=== PATIENT | male | born 1960 | race Caucasian/White ===

== ENCOUNTER 2021-03-06 20:28 | Observation (INO) | payer BC, OTHER ==
[2021-03-06 21:20] LABS: Basophils % (A) 1 %; Eosinophils % (A) 1 %; HCT 50.7 % (39.0-53.0); HGB 17.5 gm/dL (13.0-17.5); Lymphocytes # (A) 1.5 k/uL (1.0-4.8); Lymphocytes % (A) 21 %; MCH 32.1 pg (25.0-35.0); MCHC 34.6 g/dL (31.0-37.0); MCV 92.9 fL (80.0-100.0); Monocytes # (A) 0.4 k/uL (0-1.0); Monocytes % (A) 5 %; Neutrophils # (A) 5.3 k/uL (1.3-7.7); Neutrophils % (A) 72 %; Platelet Count 283 k/uL (150-450); RBC 5.46 m/uL (4.30-5.90); RDW 13.1 % (11.5-15.5); WBC 7.4 k/uL (3.8-10.6)
[2021-03-06 21:39] LABS: ALT 21 U/L (4-49); AST 36 U/L (17-59); African American GFR (CKD) >90 (>60 ml/min/1.73 sqM); Albumin 5.2 g/dL (3.5-5.0); Alkaline Phosphatase 112 U/L (38-126); Anion Gap 27 mmol/L; Blood Urea Nitrogen 12 mg/dL (9-20); Calcium 10.1 mg/dL (8.4-10.2); Carbon Dioxide 15 mmol/L (22-30); Chloride 98 mmol/L (98-107); Glucose 94 mg/dL (74-99); Magnesium 2.3 mg/dL (1.6-2.3); Non-African American GFR(CKD) 79 (>60 ml/min/1.73 sqM); Potassium 4.8 mmol/L (3.5-5.1); Sodium 140 mmol/L (137-145); Total Bilirubin 0.8 mg/dL (0.2-1.3)
[2021-03-06 21:46] LABS: Alcohol 201 mg/dL
--- NOTE | 2021-03-06 21:49 | XR ---
EXAMINATION TYPE: XR chest 2V DATE OF EXAM: 03/06/2021 COMPARISON: 04/17/2015 HISTORY: Chest pain TECHNIQUE: 2 views FINDINGS: Heart and mediastinum are normal. Lungs are clear. Diaphragm is normal. Bony thorax is inta ct. There are chest leads. IMPRESSION: Normal chest. No change.
--- NOTE | 2021-03-06 21:55 | ED ---
Psych HPI - General Chief Complaint: Psychiatric Symptoms Stated Complaint: Chest Pain,ETOH,Suicidal Time Seen by Provider: 03/06/21 20:57 Source: patient Mode of arrival: ambulatory - History of Present Illness Initial Comments: This patient is a 60-year-old man with history of depression who states that his mood has worsened and he is having suicidal ideation. He states that it seems like his medicines stopped helping probably around 6 months ago and he has been feeling worse. He states that he was trying alcohol to see if that will help but is been continued to worsen. On the review of systems, patient was having some left-sided chest pain which is been going on for about a week. It has been constant, aching, without relieving or worsening factors. No associated anginal symptoms. MD Complaint: suicidal ideation, feels depressed Onset/Timin -: month(s) Associated Psychiatric Symptoms: depression, suicidal ideation History of same: Yes Quality: getting worse Improves With: none Worsens With: none - Related Data Home Medications Medication Instructions Recorded Confirmed Brexpiprazole [Rexulti] 1 mg PO DAILY 03/06/21 03/06/21 Gabapentin [Neurontin] 100 mg PO QID 03/06/21 03/06/21 Sacubitril/Valsartan [Entresto 97 1 tab PO BID 03/06/21 03/06/21 mg-103 mg Tablet] Sertraline HCl [Zoloft] 100 mg PO DIRECTED 03/06/21 03/06/21 Sildenafil Citrate 60 - 100 mg PO DAILY PRN 03/06/21 03/06/21 Vortioxetine Hydrobromide 5 mg PO DIRECTED 03/06/21 03/06/21 [Trintellix] buPROPion HCL [Wellbutrin SR] 100 mg PO DIRECTED 03/06/21 03/06/21 busPIRone HCl [Buspar] 5 mg PO QID 03/06/21 03/06/21 Allergies Allergy/AdvReac Type Severity Reaction Status Date / Time No Known Allergies Allergy Verified 03/06/21 22:13 Review of Systems ROS Statement: Those systems with pertinent positive or pertinent negative responses have been documented in the HPI. ROS Other: All systems not noted in ROS Statement are negative. Constitutional: Denies: fever, chills, weakness ENT: Denies: throat pain Respiratory: Denies: cough, dyspnea Cardiovascular: Reports: as per HPI, chest pain. Denies: palpitations, dyspnea on exertion, orthopnea, edema, syncope Gastrointestinal: Denies: abdominal pain, vomiting, diarrhea Genitourinary: Denies: dysuria, hematuria Musculoskeletal: Denies: back pain Skin: Denies: rash Neurological: Denies: headache, weakness, numbness Psychiatric: Reports: depression, suicidal thoughts. Denies: auditory hallucinations, visual hallucinations, homicidal thoughts Past Medical History Past Medical History: Hypertension Additional Past Medical History / Comment(s): OCD History of Any Multi-Drug Resistant Organisms: None Reported Past Surgical History: Tonsillectomy Past Anesthesia/Blood Transfusion Reactions: No Reported Reaction Past Psychological History: Anxiety, Depression Smoking Status: Former smoker Past Alcohol Use History: Daily Past Drug Use History: None Reported - Past Family History Father Additional Family Medical History / Comment(s): Father at age 56 from suicide. He also had history of MS. Mother Additional Family Medical History / Comment(s): Mother is alive in her 80s with history of OCD and possibly other mental health issues according to the patient. Sister(s) Additional Family Medical History / Comment(s): Patient has one sister with no major medical problems. Patient does not have any brothers. Patient has one 13-year-old daughter with history of leukemia General Exam Limitations: no limitations General appearance: alert, in no apparent distress Head exam: Present: atraumatic, normocephalic Eye exam: Present: normal appearance. Absent: scleral icterus, conjunctival injection ENT exam: Present: normal oropharynx Neck exam: Present: normal inspection Respiratory exam: Present: normal lung sounds bilaterally. Absent: respiratory distress, wheezes, rales, rhonchi, stridor, chest wall tenderness Cardiovascular Exam: Present: normal rhythm, tachycardia (Rate 104 exam), normal heart sounds. Absent: systolic murmur, diastolic murmur, rubs, gallop GI/Abdominal exam: Present: soft. Absent: distended, tenderness, guarding, rebound, rigid, mass Extremities exam: Present: normal inspection, normal capillary refill. Absent: pedal edema, calf tenderness Back exam: Present: normal inspection. Absent: CVA tenderness (R), CVA te nderness (L) Neurological exam: Present: alert Psychiatric exam: Present: depressed, suicidal ideation. Absent: agitated, anxious, flat affect, manic, homicidal ideation Skin exam: Present: warm, dry, intact, normal color. Absent: rash Course Vital Signs 03/06/21 03/06/21 03/07/21 20:35 22:31 00:00 Temperature 96.9 F L 96.8 F L 98.5 F Pulse Rate 114 H 95 105 H Respiratory 20 18 18 Rate Blood Pressure 175/104 134/87 127/85 O2 Sat by Pulse 97 95 93 L Oximetry 03/07/21 03/07/21 05:03 06:20 Temperature Pulse Rate 110 H 96 Respiratory 18 16 Rate Blood Pressure 122/78 118/68 O2 Sat by Pulse 96 98 Oximetry Medical Decision Making - Medical Decision Making This patient is 60-year-old man presenting with complaint of worsening depression and suicidal ideation. He also describes intermittent chest pains going back days to a couple of weeks. Given the patient's history, will complete the initial cardiac rule out, by admitting under the medical service with psychiatry consultation for the suicidal ideation and depression. - Lab Data Result diagrams: 03/06/21 21:14 03/06/21 21:14 Lab Results 03/06/21 03/06/21 03/06/21 Range/Units 21:14 21:14 21:14 WBC 7.4 (3.8-10.6) k/uL RBC 5.46 (4.30-5.90) m/uL Hgb 17.5 (13.0-17.5) gm/dL Hct 50.7 (39.0-53.0) % MCV 92.9 (80.0-100.0) fL MCH 32.1 (25.0-35.0) pg MCHC 34.6 (31.0-37.0) g/dL RDW 13.1 (11.5-15.5) % Plt Count 283 (150-450) k/uL MPV 8.0 Neutrophils % 72 % Lymphocytes % 21 % Monocytes % 5 % Eosinophils % 1 % Basophils % 1 % Neutrophils # 5.3 (1.3-7.7) k/uL Lymphocytes # 1.5 (1.0-4.8) k/uL Monocytes # 0.4 (0-1.0) k/uL Eosinophils # 0.0 (0-0.7) k/uL Basophils # 0.0 (0-0.2) k/uL Sodium 140 (137-145) mmol/L Potassium 4.8 (3.5-5.1) mmol/L Chloride 98 (98-107) mmol/L Carbon Dioxide 15 L (22-30) mmol/L Anion Gap 27 mmol/L BUN 12 (9-20) mg/dL Creatinine 1.02 (0.66-1.25) mg/dL Est GFR (CKD-EPI)AfAm >90 (>60 ml/min/1.73 sqM) Est GFR (CKD-EPI)NonAf 79 (>60 ml/min/1.73 sqM) Glucose 94 (74-99) mg/dL Calcium 10.1 (8.4-10.2) mg/dL Magnesium 2.3 (1.6-2.3) mg/dL Total Bilirubin 0.8 (0.2-1.3) mg/dL AST 36 (17-59) U/L ALT 21 (4-49) U/L Alkaline Phosphatase 112 (38-126) U/L Troponin I <0.012 (0.000-0.034) ng/mL Total Protein 8.0 (6.3-8.2) g/dL Albumin 5.2 H (3.5-5.0) g/dL Serum Alcohol 201 H* mg/dL 03/07/21 Range/Units 01:21 WBC (3.8-10.6) k/uL RBC (4.30-5.90) m/uL Hgb (13.0-17.5) gm/dL Hct (39.0-53.0) % MCV (80.0-100.0) fL MCH (25.0-35.0) pg MCHC (31.0-37.0) g/dL RDW (11.5-15.5) % Plt Count (150-450) k/uL MPV Neutrophils % % Lymphocytes % % Monocytes % % Eosinophils % % Basophils % % Neutrophils # (1.3-7.7) k/uL Lymphocytes # (1.0-4.8) k/uL Monocytes # (0-1.0) k/uL Eosinophils # (0-0.7) k/uL Basophils # (0-0.2) k/uL Sodium (137-145) mmol/L Potassium (3.5-5.1) mmol/L Chloride (98-107) mmol/L Carbon Dioxide (22-30) mmol/L Anion Gap mmol/L BUN (9-20) mg/dL Creatinine (0.66-1.25) mg/dL Est GFR (CKD-EPI)AfAm (>60 ml/min/1.73 sqM) Est GFR (CKD-EPI)NonAf (>60 ml/min/1.73 sqM) Glucose (74-99) mg/dL Calcium (8.4-10.2) mg/dL Magnesium (1.6-2.3) mg/dL Total Bilirubin (0.2-1.3) mg/dL AST (17-59) U/L ALT (4-49) U/L Alkaline Phosphatase (38-126) U/L Troponin I <0.012 (0.000-0.034) ng/mL Total Protein (6.3-8.2) g/dL Albumin (3.5-5.0) g/dL Serum Alcohol mg/dL - EKG Data -: EKG Interpreted by Hi EKG shows normal: sinus rhythm, intervals (Normal), QRS complexes (Left anterior fascicular block.), ST-T waves (Normal) Rate: tachycardia (03/15/2003) Disposition Clinical Impression: Suicidal ideation, Mood disorder, Alcohol intoxication Disposition: ADMITTED IP TO THIS HOSP Condition: Fair
[2021-03-06] MEDS ORDERED: LORazepam 2 MG/ML INJ IV PRN (22:38)
[2021-03-06] MEDS ORDERED: THIAMINE 100 MG/ML 2 ML VIAL IM STA (22:38)
[2021-03-06] MEDS: LORazepam 2 MG/ML INJ IV PRN (23:03)
[2021-03-07] MEDS: LORazepam 2 MG/ML INJ IV PRN ×5 (01:46→22:19)
[2021-03-07] MEDS ORDERED: NITROGLYCERIN SL TABS 0.4 MG TAB SUBLINGUAL PRN (05:52)
[2021-03-07] MEDS ORDERED: SERTRALINE 100 MG TAB PO SCH (06:00)
--- NOTE | 2021-03-07 08:59 | CONS ---
CONSULTATION Mr. Valadez is a 60-year-old male who presented to the emergency room after consuming a large amount of alcohol and symptoms of chest discomfort. He has a history of alcoholism on and off and he has been feeling more depressed recently and had drank quite a bit of alcohol. He was having some suicidal idea. He came in with some episodes of chest discomfort that was brief. The patient has a history of cardiomyopathy in the past, full detail and the etiology is unclear. He has not seen a database engineer recently. He has some dyspnea on exertion. No dizziness. No palpitation. No syncope. No PND nor orthopnea. He has a prior history of smoking, but not recently. He denies any recent cardiac workup. He has a history of hypertension, he is nondiabetic. MEDICATIONS: Medications include gabapentin, Wellbutrin, Trintellix, Zoloft, Rexulti, Entresto 97/103 twice a day, and BuSpar. REVIEW OF SYSTEMS: RESPIRATORY SYSTEM: He has occasional cough. No significant dyspnea on exertion. No wheezing. GI SYSTEM: No recent GI bleeding. No peptic ulcer disease. SYSTEM: No dysuria or hematuria. NERVOUS SYSTEM: No history of stroke or seizure. PHYSICAL EXAMINATION: GENERAL: A 60-year-old male, alert, oriented, in no apparent distress. VITAL SIGNS: Blood pressure 118/60 with a heart rate in 90s, afebrile. HEAD: Normocephalic. Eyes sclerae anicteric. NECK: Good carotid upstroke, no bruit, no jugular venous distention. LUNGS: Clear to auscultation. HEART: Regular rate and rhythm S1, S2. No S3. No S4. No murmur or rub. ABDOMEN: Soft, nontender, positive bowel sounds. No organomegaly. EXTREMITIES: No edema. LAB DATA: Lab data revealed troponin less than 0.012 for 3 samples. Serum alcohol of 201. Potassium 4.8. Sodium 140. Hemoglobin of 17.5. EKG revealed a sinus mechanism, rate of 103, left axis deviation, poor R wave progression. Chest x-ray shows no acute infiltrate. IMPRESSION: 1. Chest discomfort atypical for ischemic heart disease. No evidence to suggest acute coronary syndrome. 2. Alcoholism with acute intoxication. 3. History of cardiomyopathy of unclear etiology. Workup not available to me. RECOMMENDATION: Patient has been restarted on Entresto. I will add a dose of beta yogi. I will obtain a repeat echocardiogram. From the cardiac standpoint at this time there is no indication for further cardiac workup. Depending on his progress, further recommendations will be made. Thank you for this consult. We will follow with you. JOEY / IJN: [id number] /
[2021-03-07] MEDS: THIAMINE 100 MG TAB PO SCH ×2 (09:57→17:16)
[2021-03-07] MEDS: GABAPENTIN 100 MG CAP PO SCH ×4 (09:57→22:17)
[2021-03-07] MEDS: METOPROLOL SUCCINATE (ER) 25 MG TAB.ER.24H PO SCH (09:57)
[2021-03-07] MEDS: Brexpiprazole [Rexulti] PO SCH (09:57)
[2021-03-07] MEDS: busPIRone HCl 5 MG TAB PO SCH ×4 (09:57→22:17)
[2021-03-07] MEDS: SACUBITRIL/VALSARTAN 97 MG-103 MG TABLET PO SCH ×2 (09:58→22:27)
--- NOTE | 2021-03-07 11:26 | P.HPIM ---
History of Present Illness Patient is 60-year-old male ai given with suicidal ideations patient the same as he is quite a bit depressed and he is up to that point when asked him about this. Patient is awake alert patient was intoxicated when he came in. Patient the did drink one whole bottle of wine patient was drinking around the 2-4 bottles for last 2 weeks before that patient didn't drink alcohol on a daily basis patient laboratory data is not consistent with the chronic alcoholism although patient had history of all call withdrawal seizures in the past. Is comparing of epigastric abdominal discomfort because of which is believed to have chest pain and the cardiology was consulted because of that and cardiology evaluated the patient they believe patient chest pain is noncardiac. Patient does have history of cardiomyopathy etiology of this can you mapped is not clear. Patient is on Entresto, patient is presently not in acute exacerbation. Patient doesn't use any diuretics at home. His ejection fraction is not known as there is no echocardiogram available patient has anion gap metabolic acidosis secondary to alcohol but will rule out lactic acidosis will order lactic acid on him. REVIEW OF SYSTEMS: CONSTITUTIONAL: No fever, no malaise, no fatigue. HEENT: No recent visual problems or hearing problems. Denied any sore throat. CARDIOVASCULAR: No orthopnea, PND, no palpitations, no syncope. PULMONARY: No shortness of breath, no cough, no hemoptysis. GASTROINTESTINAL: No diarrhea, no nausea, no vomiting. NEUROLOGICAL: No headaches, no weakness, no numbness. HEMATOLOGICAL: Denies any bleeding or petechiae. GENITOURINARY: Denies any burning micturition, frequency, or urgency. MUSCULOSKELETAL/RHEUMATOLOGICAL: Denies any joint pain, swelling, or any muscle pain. ENDOCRINE: Denies any polyuria or polydipsia. The rest of the 14-point review of systems is negative. PHYSICAL EXAMINATION: GENERAL: The patient is alert and oriented x3, not in any acute distress. Well developed, well nourished. HEENT: Pupils are round and equally reacting to light. EOMI. No scleral icterus. No conjunctival pallor. Normocephalic, atraumatic. No pharyngeal erythema. No thyromegaly. CARDIOVASCULAR: S1 and S2 present. No murmurs, rubs, or gallops. PULMONARY: Chest is clear to auscultation, no wheezing or crackles. ABDOMEN: Soft, nontender, nondistended, normoactive bowel sounds. No palpable organomegaly. MUSCULOSKELETAL: No joint swelling or deformity. EXTREMITIES: No cyanosis, clubbing, or pedal edema. NEUROLOGICAL: Gross neurological examination did not reveal any focal deficits. SKIN: No rashes. Assessment and plan Depression and possible suicidal ideations: Psychiatry was consulted patient presently doesn't have a sitter. -Major depression -Epigastric abdominal discomfort most probably alcohol gastritis patient will be started on Protonix -Alcohol abuse -Alcohol withdrawal: Patient has very low possibility of having alcohol withdrawals considering his labs and alcohol use history. Patient doesn't have any withdrawals patient will be cleared to go to psychiatric floor most probably tomorrow. -Anion gap metabolic acidosis: Continue to alcoholism we will rule out lactic acidosis DVT prophylaxis: Proximal Past Medical History Past Medical History: Hypertension Additional Past Medical History / Comment(s): OCD History of Any Multi-Drug Resistant Organisms: None Reported Past Surgical History: Tonsillectomy Past Anesthesia/Blood Transfusion Reactions: No Reported Reaction Past Psychological History: Anxiety, Depression Smoking Status: Former smoker Past Alcohol Use History: Daily Past Drug Use History: None Reported - Past Family History Father Additional Family Medical History / Comment(s): Father at age 56 from suicide. He also had history of MS. Mother Additional Family Medical History / Comment(s): Mother is alive in her 80s with history of OCD and possibly other mental health issues according to the patient. Sister(s) Additional Family Medical History / Comment(s): Patient has one sister with no major medical problems. Patient does not have any brothers. Patient has one 13-year-old daughter with history of leukemia Medications and Allergies Home Medications Medication Instructions Recorded Confirmed Type Brexpiprazole [Rexulti] 1 mg PO DAILY 03/06/21 03/06/21 History Gabapentin [Neurontin] 100 mg PO QID 03/06/21 03/06/21 History Sacubitril/Valsartan [Entresto 97 1 tab PO BID 03/06/21 03/06/21 History mg-103 mg Tablet] Sertraline HCl [Zoloft] 100 mg PO DIRECTED 03/06/21 03/06/21 History Sildenafil Citrate 60 - 100 mg PO DAILY PRN 03/06/21 03/06/21 History Vortioxetine Hydrobromide 5 mg PO DIRECTED 03/06/21 03/06/21 History [Trintellix] buPROPion HCL [Wellbutrin SR] 100 mg PO DIRECTED 03/06/21 03/06/21 History busPIRone HCl [Buspar] 5 mg PO QID 03/06/21 03/06/21 History Allergies Allergy/AdvReac Type Severity Reaction Status Date / Time No Known Allergies Allergy Verified 03/06/21 22:13 Physical Exam Vitals: Vital Signs Temp Pulse Resp BP Pulse Ox 03/07/21 10:20 94 16 154/80 96 03/07/21 06:20 96 16 118/68 98 03/07/21 05:03 110 H 18 122/78 96 03/07/21 00:00 98.5 F 105 H 18 127/85 93 L 03/06/21 22:31 96.8 F L 95 18 134/87 95 03/06/21 20:35 96.9 F L 114 H 20 175/104 97 Intake and Output 03/06/21 03/07/21 03/07/21 22:59 06:59 14:59 Other: Weight 95.254 kg Results CBC & Chem 7: 03/06/21 21:14 03/06/21 21:14 Labs: Abnormal Lab Results - Last 24 Hours (Table) 03/06/21 Range/Units 21:14 Carbon Dioxide 15 L (22-30) mmol/L Albumin 5.2 H (3.5-5.0) g/dL Serum Alcohol 201 H* mg/dL
[2021-03-07] MEDS: PANTOPRAZOLE 40 MG/10 ML VIAL IVP SCH (13:58)
[2021-03-07] MEDS: buPROPion SR 100 MG TABLET.ER PO SCH ×2 (14:46→22:18)
--- NOTE | 2021-03-07 15:00 | ECHOF ---
Referral Reason:cm MEASUREMENTS -------- HEIGHT: 177.8 cm WEIGHT: 95.3 kg BP: IVSd: 1.8 cm (0.6 - 1.1) LVIDd: 4.1 cm (3.9 - 5.3) LVPWd: 1.6 cm (0.6 - 1.1) IVSs: 1.9 cm LVIDs: 3.1 cm LVPWs: 1.6 cm Ao Diam: 4.0 cm (2.0 - 3.7) AV Cusp: 2.5 cm (1.5 - 2.6) LA Diam: 2.9 cm (2.7 - 3.8) MV EXCURSION: 15.618 mm (> 18.000) MV EF SLOPE: 91 mm/s (70 - 150) EPSS: 1.7 cm MV E Cr: 1.02 m/s MV DecT: 92 ms MV A Cr: 0.39 m/s MV E/A Ratio: 2.61 RAP: 5.00 mmHg RVSP: 9.49 mmHg FINDINGS -------- Sinus rhythm. This was a technically difficult study with suboptimal views. Left ventricular wall thickness is normal. Overall left ventricular systolic function is moderately impaired with, an EF between 35 - 40 %. Basal inferior LV wall motion is hypokinetic. Basal inf eroseptal LV wall motion is hypokinetic. Mid inferior LV wall motion is hypokinetic. Mid infero septal LV wall motion is hypokinetic. Apical inferior LV wall motion is hypokinetic. The right ventricle is normal in size. The left atrial size is normal. The right atrial size is normal. Lumason used The aortic valve was not well visualized. The mitral valve is normal. There is trace mitral regurgitation. The tricuspid valve appears structurally normal. Trace tricuspid regurgitation present. Right jeimy tricular systolic pressure is normal at < 35 mmHg. The pulmonic valve was not well visualized. The aortic root is dilated measuring 4.0 cm. IVC Not well visulized. There is no pericardial effusion. CONCLUSIONS -------- 1. This was a technically difficult study with suboptimal views. 2. Left ventricular wall thickness is normal. 3. Overall left ventricular systolic function is moderately impaired with, an EF between 35 - 40 %. 4. Basal inferior LV wall motion is hypokinetic. 5. Basal inferoseptal LV wall motion is hypokinetic. 6. Mid inferior LV wall motion is hypokinetic. 7. Mid inferoseptal LV wall motion is hypokinetic. 8. Apical inferior LV wall motion is hypokinetic. 9. The left atrial size is normal. 10. There is trace mitral regurgitation. 11. Trace tricuspid regurgitation present. 12. The aortic root is dilated measuring 4.0 cm. 13. There is no pericardial effusion. JUKE BOX MECHANIC: Lynne Hyman RDCS
[2021-03-08 06:08] LABS: African American GFR (CKD) 88 (>60 ml/min/1.73 sqM); Anion Gap 10 mmol/L; Blood Urea Nitrogen 21 mg/dL (9-20); Calcium 9.8 mg/dL (8.4-10.2); Carbon Dioxide 31 mmol/L (22-30); Chloride 96 mmol/L (98-107); Glucose 128 mg/dL (74-99); Non-African American GFR(CKD) 76 (>60 ml/min/1.73 sqM); Potassium 4.1 mmol/L (3.5-5.1); Sodium 137 mmol/L (137-145)
[2021-03-08] MEDS: ASPIRIN 81 MG PO SCH (07:11)
[2021-03-08] MEDS: GABAPENTIN 100 MG CAP PO SCH ×4 (07:11→21:56)
[2021-03-08] MEDS: busPIRone HCl 5 MG TAB PO SCH ×4 (07:11→21:56)
[2021-03-08] MEDS: ENOXAPARIN 40 MG/0.4 ML SYRINGE SQ SCH (07:11)
[2021-03-08] MEDS: buPROPion SR 100 MG TABLET.ER PO SCH ×2 (07:11→21:56)
[2021-03-08] MEDS: METOPROLOL SUCCINATE (ER) 25 MG TAB.ER.24H PO SCH (07:12)
[2021-03-08] MEDS: SACUBITRIL/VALSARTAN 97 MG-103 MG TABLET PO SCH (07:12)
[2021-03-08] MEDS: Brexpiprazole [Rexulti] PO SCH (07:12)
[2021-03-08] MEDS: THIAMINE 100 MG TAB PO SCH ×2 (08:17→17:41)
[2021-03-08] MEDS: PANTOPRAZOLE 40 MG/10 ML VIAL IVP SCH (08:17)
[2021-03-08] MEDS ORDERED: ASPIRIN 325 MG TAB PO SCH (09:00)
[2021-03-08 10:08] LABS: Chol/HDL Ratio 3.25; LDL Cholesterol,Calculated 77.8 mg/dL (0.0-131.0); VLDL Calculation 30.2 mg/dL (5.00-40.00)
--- NOTE | 2021-03-08 11:31 | P.DS ---
Providers Date of admission: 03/07/21 05:52 Expected date of discharge: 03/08/21 Attending physician: Yossi Hahn Consults: 03/07/21 05:52 Consult Physician Routine Consulting Provider: Josefina Diana Consult Reason/Comments: chest pain Do you want consulting provider notified?: Yes 03/08/21 11:15 Consult Physician Routine Consulting Provider: Tres Ahuja Consult Reason/Comments: suicidal ideation Do you want consulting provider notified?: Already Contacted Primary care physician: Fabby Fermin [facility] Course: History of Present Illness Patient is 60-year-old male ai given with suicidal ideations patient the same as he is quite a bit depressed and he is up to that point when asked him about this. Patient is awake alert patient was intoxicated when he came in. Patient the did drink one whole bottle of wine patient was drinking around the 2-4 bottles for last 2 weeks before that patient didn't drink alcohol on a daily basis patient laboratory data is not consistent with the chronic alcoholism although patient had history of all call withdrawal seizures in the past. Is comparing of epigastric abdominal discomfort because of which is believed to have chest pain and the cardiology was consulted because of that and cardiology evaluated the patient they believe patient chest pain is noncardiac. Patient does have history of cardiomyopathy etiology of this can you mapped is not clear. Patient is on Entresto, patient is presently not in acute exacerbation. Patient doesn't use any diuretics at home. His ejection fraction is not known as there is no echocardiogram available patient has anion gap metabolic acidosis secondary to alcohol but will rule out lactic acidosis will order lactic acid on him. 03/08/2021 Patient seen on follow-up on the medical floor, having no withdrawal symptoms at this time. Patient is calm and cooperative, answering questions appropriately Vital signs are stable, no fever. He is not short of breath or having any chest pain, is on room air saturating above 90%. Family is at bedside. We'll check a chest x-ray as he does have known history of CHF. Patient is medically stable for transfer to psychiatric floor. Constitutional: Denied any fatigue denied any fever. Cardio vascular: denied any chest pain, palpitations Gastrointestinal denied any nausea vomiting Pulmonary: Denied any shortness of breath cough Neurologic denied any new focal deficits psychiatric: depressed and anxious PHYSICAL EXAMINATION: GENERAL: The patient is alert and oriented x3, not in any acute distress. Well developed, well nourished. HEENT: Pupils are round and equally reacting to light. EOMI. No scleral icterus. No conjunctival pallor. Normocephalic, atraumatic. No pharyngeal erythema. No thyromegaly. CARDIOVASCULAR: S1 and S2 present. No murmurs, rubs, or gallops. PULMONARY: Chest is clear to auscultation, no wheezing or crackles. ABDOMEN: Soft, nontender, nondistended, normoactive bowel sounds. No palpable organomegaly. MUSCULOSKELETAL: No joint swelling or deformity. EXTREMITIES: No cyanosis, clubbing, or pedal edema. NEUROLOGICAL: Gross neurological examination did not reveal any focal deficits. SKIN: No rashes. Assessment and plan Depression and possible suicidal ideations: Plan for discharge and readmit to psychiatric unit. Patient is medically stable for transfer to the psychiatric unit. Patient has voluntarily agreed to go to inpatient psychiatric unit for further treatment. -Major depression -Epigastric abdominal discomfort most probably alcohol gastritis patient will be started on Protonix -Alcohol abuse -History of CHF: Not in acute exacerbation, we will check a chest x-ray prior to transfer to psychiatric unit. -Alcohol withdrawal: Patient has not had any alcohol withdrawal symptoms, it is unlikely that he will have withdrawal, in the case es have minor withdrawal symptoms these can be managed on the psychiatric unit. DVT prophylaxis: Subcutaneous Lovenox Patient Condition at Discharge: Fair Plan - Discharge Summary Discharge Rx Participant: No New Discharge Prescriptions: New Omeprazole [PriLOSEC] 40 mg PO AC-BRKFST #14 capsule. Thiamine [Vitamin B-1] 100 mg PO BID-W/MEALS tab Continue Vortioxetine Hydrobromide [Trintellix] 5 mg PO DIRECTED Sertraline HCl [Zoloft] 100 mg PO DIRECTED Sacubitril/Valsartan [Entresto 97 mg-103 mg Tablet] 1 tab PO BID busPIRone HCl [Buspar] 5 mg PO QID Sildenafil Citrate 60 - 100 mg PO DAILY PRN PRN Reason: E.D. Gabapentin [Neurontin] 100 mg PO QID buPROPion HCL [Wellbutrin SR] 100 mg PO DIRECTED Brexpiprazole [Rexulti] 1 mg PO DAILY Discharge Medication List Brexpiprazole [Rexulti] 1 mg PO DAILY 03/06/21 [History] Gabapentin [Neurontin] 100 mg PO QID 03/06/21 [History] Sacubitril/Valsartan [Entresto 97 mg-103 mg Tablet] 1 tab PO BID 03/06/21 [History] Sertraline HCl [Zoloft] 100 mg PO DIRECTED 03/06/21 [History] Sildenafil Citrate 60 - 100 mg PO DAILY PRN 03/06/21 [History] Vortioxetine Hydrobromide [Trintellix] 5 mg PO DIRECTED 03/06/21 [History] buPROPion HCL [Wellbutrin SR] 100 mg PO DIRECTED 03/06/21 [History] busPIRone HCl [Buspar] 5 mg PO QID 03/06/21 [History] Omeprazole [PriLOSEC] 40 mg PO AC-BRKFST #14 capsule. 03/08/21 [Rx] Thiamine [Vitamin B-1] 100 mg PO BID-W/MEALS tab 03/08/21 [Rx] Follow up Appointment(s)/Referral(s): Fabby Fermin DO [Primary Care Provider] - 3 Days Discharge Disposition: TRANSFER TO PSYCH HOSP/UNIT
--- NOTE | 2021-03-08 13:24 | P.PN ---
Subjective Progress Note Date: 03/08/21 This 60-year-old gentleman with history of alcoholism and history of cardiomyopathy. Presented to the hospital after consuming a large amount of alcohol and developing symptoms of chest discomfort as well as some suicidal ideation. Patient had been on Entresto tablet twice a day at home. Echocardiogram with Doppler study done yesterday showed paired LV systolic function with an ejection fraction of 35-40% with evidence of segmental wall motion abnormality which the patient has had been told in the past for these had an MT. He does not follow regularly with cardiology. He was initiated on metoprolol succinate 25 mg by mouth daily yesterday. He is tolerating this well. Overall from a cardiac standpoint he seems stable. He's had no further complaints of chest discomfort. His breathing is stable and he has no edema. Objective - Vital Signs Vital signs: Vital Signs Temp 97.6 F 03/08/21 08:00 Pulse 94 03/08/21 08:00 Resp 18 03/08/21 08:00 BP 116/78 03/08/21 08:00 Pulse Ox 94 L 03/08/21 08:00 Intake & Output 03/07/21 03/08/21 03/08/21 18:59 06:59 18:59 Weight 95.254 kg 87.2 kg Other: Voiding Method Toilet Toilet Toilet # Voids 1 2 1 - Exam PHYSICAL EXAMINATION: HEENT: Head is atraumatic, normocephalic. Pupils equal, round. Neck is supple. There is no elevated jugular venous pressure. HEART EXAMINATION: Heart sounds regular, S1 and S2 normal. No murmur or gallop heard. CHEST EXAMINATION: Lungs are clear to auscultation and precussion. No chest wall tenderness is noted on palpation or with deep breathing. ABDOMEN: Soft, nontender. Bowel sounds are heard. No organomegaly noted. EXTREMITIES: 2+ peripheral pulses with no evidence of peripheral edema and no calf tenderness noted. NEUROLOGIC patient is awake, alert and oriented x3. . - Labs CBC & Chem 7: 03/06/21 21:14 03/08/21 05:43 Labs: Abnormal Lab Results - Last 24 Hours (Table) 03/08/21 03/08/21 Range/Units 05:43 05:43 Chloride 96 L (98-107) mmol/L Carbon Dioxide 31 H (22-30) mmol/L BUN 21 H (9-20) mg/dL Glucose 128 H (74-99) mg/dL Triglycerides 151.0 H (0.0-149.0) mg/dL Assessment and Plan Assessment: #1 chest discomfort, atypical for ischemic heart disease #2 cardiomyopathy with an ejection fraction of 35-40% with evidence of segmental wall motion abnormality, details of previous workup not available at this time could be related to both ischemic and nonischemic etiologies #3 alcoholism with acute intoxication Plan: From cardiology's perspective medications were viewed and we will continue the same. Her standpoint patient may be discharged and follow-up in the office in 2 weeks at which time further medication adjustments will be made as needed. CAGE LOADER note has been reviewed, I agree with a documented findings and plan of care. Patient was seen and examined.
--- NOTE | 2021-03-08 15:13 | XR ---
EXAMINATION TYPE: XR chest 1V DATE OF EXAM: 03/08/2021 HISTORY: Shortness of breath. COMPARISON: 03/06/2021 TECHNIQUE: Single view of the chest is submitted. FINDINGS: Demonstrated are scattered senescent parenchymal change. There is no evidence for focal infiltrate. The heart is stable. Hilar and mediastinal structures are within normal limits. Degenerative changes are seen of the dorsal spine. IMPRESSION: 1. Chronic changes without evidence for acute pulmonary disease.
[2021-03-08] MEDS ORDERED: clonazePAM 0.5 MG TAB PO PRN (21:07)
[2021-03-08] MEDS: SACUBITRIL/VALSARTAN 49 MG-51 MG TABLET PO SCH (22:00)
[2021-03-09 01:04] VITALS: RESP 16
[2021-03-09] MEDS ORDERED: PANTOPRAZOLE 40 MG TABLET PO SCH (07:30)
[2021-03-09 07:51] VITALS: PULSE 80; TEMP 97.9
[2021-03-09] MEDS: ASPIRIN 81 MG PO SCH (08:09)
[2021-03-09] MEDS: METOPROLOL SUCCINATE (ER) 25 MG TAB.ER.24H PO SCH (08:09)
[2021-03-09] MEDS: THIAMINE 100 MG TAB PO SCH ×2 (08:09→16:59)
[2021-03-09] MEDS: buPROPion SR 100 MG TABLET.ER PO SCH (08:09)
[2021-03-09] MEDS: busPIRone HCl 5 MG TAB PO SCH (08:09)
[2021-03-09] MEDS: ENOXAPARIN 40 MG/0.4 ML SYRINGE SQ SCH (08:09)
[2021-03-09] MEDS: GABAPENTIN 100 MG CAP PO SCH ×3 (08:09→16:59)
[2021-03-09] MEDS: SACUBITRIL/VALSARTAN 49 MG-51 MG TABLET PO SCH (08:10)
[2021-03-09] MEDS: Brexpiprazole [Rexulti] PO SCH (08:29)
[2021-03-09 08:47] VITALS: BP 124/78
[2021-03-09] MEDS ORDERED: chlordiazePOXIDE 25 MG CAP PO SCH (12:15)
[2021-03-09] MEDS ORDERED: SERTRALINE 50 MG TAB PO SCH (12:15)
--- NOTE | 2021-03-09 12:17 | P.CN ---
Psychiatric Consult - . Consult date: 03/09/21 Consult:: 03/09/21 11:50 IDENTIFYING DATA: This patient is a 60-year-old male who currently lives with his girlfriend and apartment has 1 kid and is unemployed. REASON FOR REFERRAL: Psychiatry was consulted for suicidal ideations HISTORY OF PRESENT ILLNESS: The patient presented to the hospital for complaints of depression and suicidal thoughts along with having chest pain for the past week or so. Patient claims that his meds stopped helping him approximately 6 months ago and he has been using alcohol as a coping mechanism and has been feeling more depressed. He had a blood alcohol level of 201 on admission and negative troponins and was admitted for cardiac clearance. Patient was cleared by cardiology. Nurse taking care of patient states that he is continuing to have suicidal ideations however no direct plan in the hospital and has a sitter at his side. She states that his CIWA was have been doing fairly well thus far. Patient was seen at the bedside and had a soft tone of voice was fairly constricted in his affect and had poor eye contact with commercial lines underwriter. He claims that he has been not doing well in terms of his depression and anxiety for the past 6 months. He spoke about going through divorce 5 years ago. He claims that at that time he had a suicide attempt where he held a gun to himself and was escaping from the police trying to find him. He states that he was admitted to 3 at that time and was essentially homeless after. He states that he went to [facility] and began doing better on medications. He states that he has a history of severe OCD being related to germs and handwashing along with order of things. He states that he has been out of work since June and claims that his primary care physician has been managing his psychiatric medications and claims that they have not been helping him. He states that he still has suicidal thoughts however had vague plans of wanting to either buy a gun or hanging himself. He claims that he is not hearing any voices at this time. He states that his sleep is "on and off" and his appetite is poor . Patient denies any visual hallucinations and denies any paranoia or delusions. Patients admits to using alcohol daily approximately 4 bottles of wine a day. He states that he does have some anxiety related to his alcohol withdrawal however does not have any tremors and no history of severe alcohol withdrawals. He claims that he quit smoking and does not do any other drug use. PAST PSYCHIATRIC HISTORY: Patient has a a history of depression, anxiety and OCD. Patient was previously on several different antidepressants in the past and benzodiazepines along with BuSpar and Wellbutrin. Patient claims that he was last psychiatrically hospitalized about 5 years ago after a suicide attempt to [address] [facility]. He states that he does not have a outpatient psychiatrist however does follow up with his PCP for his medications. He claims that he did have a suicide attempt 5 years ago holding a gun to himself. PAST MEDICAL HISTORY: Hypertension, coronary artery disease, hernia.. ALLERGIES: as per EMR. CHEMICAL DEPENDENCY HISTORY: as per HPI. FAMILY PSYCHIATRIC/SUBSTANCE USE HISTORY: He states that his father committed suicide and mother has OCD SOCIAL HISTORY: Patient was born and raised in [place]. He states that he completed his degree in psychology and work towards a master's. 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 He has 1 kid who lives with his mother and visits his girlfriend and apartment. He states that he has 1 charge against him legally for domestic violence in 1996. MENTAL STATUS EXAM: General Appearance: Patient appears to be stated age is overweight, alert, constricted however attempts to cooperate. Patient appears to have poor hygiene and grooming wearing hospital gown with poor eye contact. Behavior: Patient is calmly lying in bed without any agitated behavior. Constricted and flat Speech: Patient's speech is fluent and nonpressured. Mood/Affect: Patient reports their mood is "depressed and anxious", affect is congruent Suicidality/Homicidality: Patient denies having any homicidal ideation intent or plan. He admits to suicidal thoughts with a plan to hang himself or use a gun. Perceptions: Patient denies any visual hallucinations and denies any auditory hallucinations Though content/process: There is no evidence of any delusional thought content and thought process is linear and goal-directed. Depressive content Memory and concentration: AOX3, grossly intact for the purposes of this session. Can spell "WORLD" backwards Judgment and insight: poor IMPRESSIONS: Major depressive disorder, severe, recurrent without psychotic features History of obsessive-compulsive disorder alcohol use disorder, currently in withdrawal PLAN: -At this time patient DOES meet criteria for inpatient psychiatric admission. -Would recommend the following medication changes/additions: Discontinued rexulti, vortioxetine, and klonopin, wellbutrin. Increased BuSpar to 10 mg 3 times a day for anxiety, started on Zoloft 50 mg daily for mood/anxiety with plan to titrate up. Remeron 15 mg daily at bedtime. We'll start Librium 25 mg twice a day for alcohol withdrawal -CIWA protocol with PRN Ativan for alcohol withdrawal. Continue to monitor vital signs. -Continue 1:1 sitter for safety -Cannot leave AMA at this time. Patient will need a petition and certification if attempting to leave AMA. -Bindery Machine Setter spoke with patient about substance abuse and the harmful effects on medical and mental health, patient verbally understood and agreed. -When medically stable, patient is eligible for transfer to a psych bed when available. -Communicated plan to patient's nurse -Psychiatry will sign off at this time -Please contact with any questions. 03/09/21 12:08
[2021-03-09] MEDS ORDERED: chlordiazePOXIDE 5 MG CAPSULE PO SCH (12:30)
[2021-03-09] MEDS: busPIRone HCl 10 MG TAB PO SCH ×2 (12:53→16:59)
--- NOTE | 2021-03-09 17:14 | P.DS ---
Providers Date of admission: 03/07/21 05:52 Expected date of discharge: 03/09/21 Attending physician: Jeremías Arreaga MD Consults: 03/08/21 11:15 Consult Physician Routine Consulting Provider: Tres Ahuja Consult Reason/Comments: suicidal ideation Do you want consulting provider notified?: Already Contacted Primary care physician: Fabby Fermin [facility] Course: Final diagnoses -Major Depression with suicidal ideations, discharge to inpatient mental health unit. -Acute alcohol intoxication with withdrawal -Alcohol gastritis, maintained on PPI -Alcohol dependence, alcohol abuse, reportedly drinks 4 bottles of wine daily. -Cardiomyopathy, EF 35-40%, per cardiology, etiology unclear- could be both ischemic and nonischemic as per cardiology -Obsessive-compulsive disorder Hospital course: This a 60-year-old gentleman admitted with chest pain- atypical for ischemic heart disease as per cardiology, cardiomyopathy, alcohol intoxication, alcohol dependence. Evaluated by cardiology, medical management maximized. Cleared by cardiology for discharge. Denies chest pain, palpitations or shortness of breath. Orthostatic vital signs negative. Significant clinical improvement, medically cleared for inpatient mental health unit. Patient will be discharged to inpatient mental health unit pending bed availability. PHYSICAL EXAMINATION: GENERAL: alert and oriented x3, no acute distress HEENT: Pupils are round and equally reacting to light. EOMI. Normocephalic, atraumatic. CARDIOVASCULAR: S1 and S2 present. No murmurs, rubs, or gallops. PULMONARY: Clear to auscultation, no wheezing or crackles. ABDOMEN: Soft, nontender, nondistended, normoactive bowel sounds. No guarding. EXTREMITIES: No cyanosis, clubbing, or pedal edema. NEUROLOGICAL: Gross neurological examination did not reveal any focal deficits. The impression and plan of care has been dictated as directed. : I performed a history and examination of this patient, discussed the same with the dictator. I agree with the dictator's note ,documented as a scribe. Any additional findings or plans will be noted. Patient Condition at Discharge: Stable Plan - Discharge Summary Discharge Rx Participant: No New Discharge Prescriptions: New Omeprazole [PriLOSEC] 40 mg PO AC-BRKFST #14 capsule. Aspirin 81 mg PO DAILY chew busPIRone HCl [Buspar] 10 mg PO TID tab Mirtazapine [Remeron] 15 mg PO HS tab Thiamine [Vitamin B-1] 100 mg PO DAILY #30 tablet Sacubitril/Valsartan [Entresto 49 mg-51 mg Tablet] 1 each PO BID tablet chlordiazePOXIDE HCl [Librium] 25 mg PO BID cap Nitroglycerin Sl Tabs [Nitrostat] 0.4 mg SUBLINGUAL Q5M PRN tab PRN Reason: Chest Pain Metoprolol Succinate (ER) [Toprol XL] 25 mg PO DAILY tab.er.24h Sertraline [Zoloft] 50 mg PO DAILY tab Continue Gabapentin [Neurontin] 100 mg PO QID Discontinued Vortioxetine Hydrobromide [Trintellix] 5 mg PO DAILY Sertraline HCl [Zoloft] 100 mg PO DAILY Sacubitril/Valsartan [Entresto 97 mg-103 mg Tablet] 1 tab PO BID busPIRone HCl [Buspar] 5 mg PO QID Sildenafil Citrate 60 - 100 mg PO DAILY PRN PRN Reason: E.D. buPROPion HCL [Wellbutrin SR] 100 mg PO BID Brexpiprazole [Rexulti] 1 mg PO DAILY Discharge Medication List Gabapentin [Neurontin] 100 mg PO QID 03/06/21 [History] Omeprazole [PriLOSEC] 40 mg PO LENORE-SHARATHInna #14 madelin. 03/08/21 [Rx] Aspirin 81 mg PO DAILY chew 03/09/21 [Rx] Metoprolol Succinate (ER) [Toprol XL] 25 mg PO DAILY tab.er.24h 03/09/21 [Rx] Mirtazapine [Remeron] 15 mg PO HS tab 03/09/21 [Rx] Nitroglycerin Sl Tabs [Nitrostat] 0.4 mg SUBLINGUAL Q5M PRN tab 03/09/21 [Rx] Sacubitril/Valsartan [Entresto 49 mg-51 mg Tablet] 1 each PO BID tablet 03/09/21 [Rx] Sertraline [Zoloft] 50 mg PO DAILY tab 03/09/21 [Rx] Thiamine [Vitamin B-1] 100 mg PO DAILY #30 tablet 03/09/21 [Rx] busPIRone HCl [Buspar] 10 mg PO TID tab 03/09/21 [Rx] chlordiazePOXIDE HCl [Librium] 25 mg PO BID cap 03/09/21 [Rx] Follow up Appointment(s)/Referral(s): Tres Ahuja MD [Medical Doctor] - 1-2 Days Jeremías Arreaga MD [STAFF PHYSICIAN] - 1 Week (After discharge from [facility]) Activity/Diet/Wound Care/Special Instructions: Discharged to IP MHU Discharge Disposition: TRANSFER TO PSYCH HOSP/UNIT
[2021-03-09] MEDS ORDERED: MIRTAZAPINE 15 MG TAB PO SCH (21:00)
== END 2021-03-09 17:41 ==
LOC: EC 20:28 → 6NMEDSUR 03-07 05:52 → 3SCARD 03-07 07:45 → 6NMEDSUR 03-07 13:32
PROVIDERS: ADMIT Family Medicine; ATTEND Family Medicine
DX: E87.2 Acidosis (principal); R10.13 Epigastric pain; R45.851 Suicidal ideations; F10.229 Alcohol dependence with intoxication, unspecified; F10.239 Alcohol dependence with withdrawal, unspecified; F32.9 Major depressive disorder, single episode, unspecified; F41.9 Anxiety disorder, unspecified; F42.9 Obsessive-compulsive disorder, unspecified; I11.0 Hypertensive heart disease with heart failure; I42.9 Cardiomyopathy, unspecified; I50.9 Heart failure, unspecified; K29.20 Alcoholic gastritis without bleeding; Z79.899 Other long term (current) drug therapy; Z87.891 Personal history of nicotine dependence
CPT/HCPCS: 99285; 96376 ×4; 96372 ×3; 93005 ×2; 82075; 96374; 96375; 36415 ×2; 94760; 93306; 80061; 80053; 80048; 83605; 83735; 84484 ×2; 85025; 80320; 71045; 71046; G0378 ×4; J2060 ×2; J3411; S0106 ×2; J1650 ×2; C9113 ×2; Q9950

== ENCOUNTER 2021-03-09 17:02 | Inpatient (IN) | payer BC, MEDICAID ==
[2021-03-09] MEDS ORDERED: NITROGLYCERIN SL TABS 0.4 MG TAB SUBLINGUAL PRN (17:12)
[2021-03-09] MEDS ORDERED: MAG HYDROX/AL HYDROX/SIMETH 30 ML CUP PO PRN (17:15)
[2021-03-09] MEDS ORDERED: MAGNESIUM HYDROXIDE 2,400 MG/10 ML CUP PO PRN (17:15)
[2021-03-09] MEDS ORDERED: ACETAMINOPHEN TAB 325 MG TAB PO PRN (17:15)
[2021-03-09] MEDS ORDERED: LORazepam 2 MG/ML INJ IM PRN (17:16)
[2021-03-09] MEDS ORDERED: HALOPERIDOL LACTATE 5 MG/ML 1 ML VIAL IM PRN (17:16)
[2021-03-09] MEDS ORDERED: MIRTAZAPINE 15 MG TAB PO SCH (21:00)
[2021-03-09] MEDS: GABAPENTIN 100 MG CAP PO SCH (22:10)
[2021-03-09] MEDS: chlordiazePOXIDE 25 MG CAP PO SCH (22:11)
[2021-03-09] MEDS: busPIRone HCl 10 MG TAB PO SCH (22:11)
[2021-03-09] MEDS: SACUBITRIL/VALSARTAN 49 MG-51 MG TABLET PO SCH ×2 (22:11→22:36)
[2021-03-10] MEDS: busPIRone HCl 10 MG TAB PO SCH ×3 (08:28→21:05)
[2021-03-10] MEDS: SERTRALINE 50 MG TAB PO SCH (08:28)
[2021-03-10] MEDS: THIAMINE 100 MG TAB PO SCH (08:28)
[2021-03-10] MEDS: chlordiazePOXIDE 25 MG CAP PO SCH (08:28)
[2021-03-10] MEDS: ASPIRIN 81 MG PO SCH (08:28)
[2021-03-10] MEDS: METOPROLOL SUCCINATE (ER) 25 MG TAB.ER.24H PO SCH (08:29)
[2021-03-10] MEDS: SACUBITRIL/VALSARTAN 49 MG-51 MG TABLET PO SCH ×2 (08:29→21:05)
[2021-03-10] MEDS: GABAPENTIN 100 MG CAP PO SCH ×4 (08:30→21:05)
[2021-03-10] MEDS ORDERED: ONDANSETRON 4 MG TAB PO PRN (10:57)
[2021-03-10] MEDS: LORazepam 1 MG TAB PO PRN (11:07)
--- NOTE | 2021-03-10 11:34 | P.HP ---
Psychiatric H&P - . H&P Date: 03/10/21 History & Physical: Allergies Allergy/AdvReac Type Severity Reaction Status Date / Time No Known Allergies Allergy Verified 03/06/21 22:13 Vital Signs Temp 97.8 F 03/09/21 17:00 Pulse 96 03/09/21 17:00 Resp 14 03/09/21 17:00 BP 129/85 03/09/21 17:00 Pulse Ox 98 03/09/21 17:00 Intake & Output 03/09/21 03/10/21 03/10/21 18:59 06:59 18:59 Weight 87.3 kg Laboratory Last Values TSH 1.790 mIU/L (0.465-4.680) 03/10/21 07:06 03/10/21 10:30 IDENTIFYING DATA: This patient is a 60-year-old male who currently lives with his girlfriend and apartment has 1 kid and is unemployed. HISTORY OF PRESENT ILLNESS: HPI was taken for consult note from journalists and other writers on 03/09/21 "The patient presented to the hospital for complaints of depression and suicidal thoughts along with having chest pain for the past week or so. Patient claims that his meds stopped helping him approximately 6 months ago and he has been using alcohol as a coping mechanism and has been feeling more depressed. He had a blood alcohol level of 201 on admission and negative troponins and was admitted for cardiac clearance. Patient was cleared by cardiology. Nurse taking care of patient states that he is continuing to have suicidal ideations however no direct plan in the hospital and has a sitter at his side. She states that his CIWA was have been doing fairly well thus far. Patient was seen at the bedside and had a soft tone of voice was fairly constricted in his affect and had poor eye contact with journalists and other writers. He claims that he has been not doing well in terms of his depression and anxiety for the past 6 months. He spoke about going through divorce 5 years ago. He claims that at that time he had a suicide attempt where he held a gun to himself and was escaping from the police trying to find him. He states that he was admitted to [facility] at that time and was essentially homeless after. He states that he went to [facility] and began doing better on medications. He states that he has a history of severe OCD being related to germs and handwashing along with order of things. He states that he has been out of work since June and claims that his primary care physician has been managing his psychiatric medications and claims that they have not been helping him. He states that he still has suicidal thoughts however had vague plans of wanting to either buy a gun or hanging himself. He claims that he is not hearing any voices at this time. He states that his sleep is "on and off" and his appetite is poor . Patient denies any visual hallucinations and denies any paranoia or delusions. Patients admits to using alcohol daily approximately 4 bottles of wine a day. He states that he does have some anxiety related to his alcohol withdrawal however does not have any tr emors and no history of severe alcohol withdrawals. He claims that he quit smoking and does not do any other drug use." Patient was seen today for psychiatric follow-up and appeared to be irritable and claims that he is feeling more anxious today. He states that he has an upset stomach and feels nauseous. He claims that he feels his heart is also racing. He continues to admit to mild withdrawal symptoms from alcohol. She had a difficult time concentrating during the evaluation. He claims that he was able to sleep last night fairly. He is currently denying any suicidal or homicidal ideations intent or plan. He is denying any auditory or visual hallucinations today. PAST PSYCHIATRIC HISTORY: Patient has a a history of depression, anxiety and OCD. Patient was previously on several different antidepressants in the past and benzodiazepines along with BuSpar and Wellbutrin. Patient claims that he was last psychiatrically hospitalized about 5 years ago after a suicide attempt to [facility]. He states that he does not have a outpatient psychiatrist however does follow up with his PCP for his medications. He claims that he did have a suicide attempt 5 years ago holding a gun to himself. PAST MEDICAL HISTORY: Hypertension, coronary artery disease, hernia. ALLERGIES: as per EMR. CHEMICAL DEPENDENCY HISTORY: as per HPI. FAMILY PSYCHIATRIC/SUBSTANCE USE HISTORY: He states that his father committed suicide and mother has OCD SOCIAL HISTORY: Patient was born and raised in [facility]. He states that he completed his degree in psychology and work towards a master's. 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 He has 1 kid who lives with his mother and visits his girlfriend and apartment. He states that he has 1 charge against him legally for domestic violence in 1996. MENTAL STATUS EXAM: General Appearance: Patient appears to be stated age is overweight, alert, constricted however attempts to cooperate. Patient appears to have poor hygiene and grooming wearing hospital gown with poor eye contact. Behavior: Patient is sitting in the chair without any agitated behavior. Constricted and flat Speech: Patient's speech is fluent and nonpressured. Mood/Affect: Patient reports their mood is "depressed, anxious", affect is congruent Suicidality/Homicidality: Patient denies having any homicidal ideation intent or plan. He is denying any suicidal ideations intent or plan. Perceptions: Patient denies any visual hallucinations and denies any auditory hallucinations Though content/process: There is no evidence of any delusional thought content and thought process is linear and goal-directed. Depressive content. preoccupied somatically today. Memory and concentration: AOX3, grossly intact for the purposes of this session. Can spell "WORLD" backwards Judgment and insight: poor STRENGTHS/WEAKNESSES: strength is that patient is resilient. Weakness is that patient has poor judgment and is impulsive INTELLECT: average IMPRESSIONS: Major depressive disorder, severe, recurrent without psychotic features History of obsessive-compulsive disorder alcohol use disorder, currently in withdrawal PLAN: -Patient is admitted under voluntary status to MHU for stabilization of psychiatric symptoms and safety. Patient has signed adult voluntary form and medication consent and is placed in patient's chart. -Medications : Will start patient on Librium 15 mg 3 times a day for alcohol withdrawal. Continue Zoloft 50 mg daily for mood/anxiety. BuSpar 10 mg 3 times a day for anxiety. Increase Remeron to 30 mg daily at bedtime for insomnia/appetite/mood. -prn zofran for n/v -Ativan and Haldol PRN for agitation/aggression -Started thiamine, MVM for etoh use -CIWA protocol with Ativan PRN for ETOH withdrawal -Patient was counselled on substance abuse and desired to cut back on use -Patient was informed of the risks, benefits and side effects of the medication and patient verbally consented to taking the medications. Patient signed med consent form and was placed in chart. -Internal Medicine consult to perform medical evaluation and physical. -NRT - not needed as patient does not smoke. -SW on board for discharge planning. Encourage patient to participate in groups to work on coping skills.
[2021-03-10 15:40] LABS: Hemoglobin A1C 5.1 % (4.0-6.0)
[2021-03-10] MEDS: chlordiazePOXIDE 5 MG CAPSULE PO SCH ×2 (16:24→22:36)
[2021-03-10] MEDS: MIRTAZAPINE 15 MG TAB PO SCH (21:05)
--- NOTE | 2021-03-10 21:59 | P.CONS ---
History of Present Illness - Reason for Consult Consult date: 03/10/21 - History of Present Illness Patient is a 60-year-old male with a PMH of coronary artery disease status post 1 stent, left inguinal hernia, and hypertension presented to the emergency room with complaints of depression and suicidal ideation. The patient was admitted to the [facility] he was seen and evaluated. Patient reports that over the past 1-2 weeks, he has been having intermittent nonexertional, left-s ided chest discomfort, sharp in nature, lasting for a few minutes at a time, without associated shortness of breath, palpitations, and diaphoresis, dizziness, nausea, or vomiting. Reports that this is different from the chest pain which he had when he underwent a cath with stenting. Notes that the chest pain had resolved 1 day prior to presentation and has not recurred. He reports that his hernia is unchanged, not tender, fully reducible. Denied additional complaints. Denied fever, chills, nausea, vomiting, abdominal pain, diarrhea. Denied weakness, numbness, tingling, headaches. Review of systems: Pertinent positives and negatives as discussed in HPI, a complete review of systems was performed and all other systems are negative. Physical examination: General: non toxic, no distress, appears at stated age, overweight Derm: no unusual rashes/lesions no unusual ecchymoses, warm, dry Head: atraumatic, normocephalic, symmetric Eyes: EOMI, no lid lag, anicteric sclera, pupils equal round reactive to light ENT: Nose and ears atraumatic, no thrush, no pharyngeal erythema Neck: No thyromegaly, no cervical lymphadenopathy, trachea midline, supple Mouth: no lip lesion, mucus membranes moist Cardiovascular: S1S2 reg, no murmur, positive posterior tibial pulse bilateral, no edema, capillary refill less than 2 seconds Lungs: CTA bilateral, no rhonchi, no rales , no accessory muscle use Abdominal: soft, nontender to palpation, no guarding, no appreciable organomegaly, normal bowel sounds, left small internal hernia fully reducible, nontender Ext: no gross muscle atrophy, muscle strength 5 out of 5 in all 4 extremities grossly, no contractures, Neuro: CN II-XI grossly intact, light touch intact all 4 extremities, finger to nose within normal limits, Psych: Alert, oriented, appropriate affect Assessment/plan Atypical chest pain -Obtain EKG -Hold off on troponin at this time due to pain having resolved several days ago -Patient advised to inform the staff if his pain recurs -Continue with home aspirin dose along with Lopressor Chronic conditions: Hypertension -Continue with home meds Depression and suicidal ideation -As per psychiatry Past Medical History Past Medical History: Heart Failure, Hypertension Additional Past Medical History / Comment(s): OCD, left inginual hernia History of Any Multi-Drug Resistant Organisms: None Reported Past Surgical History: Tonsillectomy Past Anesthesia/Blood Transfusion Reactions: No Reported Reaction Past Psychological History: Anxiety, Depression Additional Psychological History / Comment(s): OCD Smoking Status: Former smoker Past Alcohol Use History: Daily Additional Past Alcohol Use History / Comment(s): pt denies using any street drugs. pt states he drinks 3-4 bottles of wine a day. Past Drug Use History: None Reported - Past Family History Father Additional Family Medical History / Comment(s): Father at age 56 from suicide. He also had history of MS. Mother Additional Family Medical History / Comment(s): Mother is alive in her 80s with history of OCD and possibly other mental health issues according to the patient. Sister(s) Additional Family Medical History / Comment(s): Patient has one sister with no major medical problems. Patient does not have any brothers. Patient has one 13-year-old daughter with history of leukemia Medications and Allergies Home Medications Medication Instructions Recorded Confirmed Type Gabapentin [Neurontin] 100 mg PO QID 03/06/21 03/09/21 History Omeprazole [PriLOSEC] 40 mg PO AC-BRKFST #14 capsule. 03/08/21 03/09/21 Rx Aspirin 81 mg PO DAILY chew 03/09/21 03/09/21 Rx Metoprolol Succinate (ER) [Toprol 25 mg PO DAILY tab.er.24h 03/09/21 03/09/21 Rx XL] Mirtazapine [Remeron] 15 mg PO HS tab 03/09/21 03/09/21 Rx Nitroglycerin Sl Tabs [Nitrostat] 0.4 mg SUBLINGUAL Q5M PRN tab 03/09/21 03/09/21 Rx Sacubitril/Valsartan [Entresto 49 1 each PO BID tablet 03/09/21 03/09/21 Rx mg-51 mg Tablet] Sertraline [Zoloft] 50 mg PO DAILY tab 03/09/21 03/09/21 Rx Thiamine [Vitamin B-1] 100 mg PO DAILY #30 tablet 03/09/21 03/09/21 Rx busPIRone HCl [Buspar] 10 mg PO TID tab 03/09/21 03/09/21 Rx chlordiazePOXIDE HCl [Librium] 25 mg PO BID cap 03/09/21 03/09/21 Rx Allergies Allergy/AdvReac Type Severity Reaction Status Date / Time No Known Allergies Allergy Verified 03/06/21 22:13 Physical Exam Vitals: Vital Signs Temp Pulse Pulse Resp BP Pulse Ox 03/10/21 21:08 97.8 F 102 H 16 130/84 98 03/10/21 13:28 97.4 F L 93 18 138/84
[2021-03-11] MEDS: ASPIRIN 81 MG PO SCH (08:50)
[2021-03-11] MEDS: THIAMINE 100 MG TAB PO SCH (08:50)
[2021-03-11] MEDS: SERTRALINE 50 MG TAB PO SCH (08:50)
[2021-03-11] MEDS: METOPROLOL SUCCINATE (ER) 25 MG TAB.ER.24H PO SCH (08:50)
[2021-03-11] MEDS: SACUBITRIL/VALSARTAN 49 MG-51 MG TABLET PO SCH ×2 (08:50→21:11)
[2021-03-11] MEDS: MULTIVITAMINS, THERA 1 EACH TAB PO SCH (08:51)
[2021-03-11] MEDS: FOLIC ACID 1 MG TAB PO SCH (08:51)
[2021-03-11] MEDS: busPIRone HCl 10 MG TAB PO SCH (08:51)
[2021-03-11] MEDS: PANTOPRAZOLE 40 MG TABLET PO SCH (08:51)
[2021-03-11] MEDS: LORazepam 1 MG TAB PO PRN ×2 (08:52→15:43)
[2021-03-11] MEDS: GABAPENTIN 100 MG CAP PO SCH ×4 (08:52→21:11)
--- NOTE | 2021-03-11 10:31 | P.PN ---
Progress Note - Text Progress Note Date: 03/11/21 Interval History: Patient was seen lying in his bed this morning and was directable and agreeable to speak with commercial underwriter in the office. Patient appears to be more alert today however continues to state that he feels he is in distress. He states that his depression and anxiety are still "bad". He claims that he is trying to be more awake and active today and trying to stay positive while on the unit as he spoke about his financial issues that he has to take care of when he leaves and also was fairly vague and guarded about other problems that he has to deal with. He was agreeable to have his medications adjusted today. He states that he was able to sleep better with the Remeron last night and claims that he has an improvement in his appetite today. He states that his stomach feels better and is not feeling nauseous today. At this time patient denies any homical ideations, intent or plan. He did claim that he has fleeting thoughts of self- harm however has been trying to "suppress it". Patient denies any auditory, visual hallucinations and denies any paranoia or delusions. Patient denies any side effects from the medications and has been compliant with meds. Mental Status Exam: General Appearance: Patient appears to be stated age is overweight, alert, constricted however attempts to cooperate. Patient appears to have poor hygiene and grooming wearing hospital gown with improving eye contact. Behavior: Patient is sitting in the chair without any agitated behavior. C onstricted Speech: Patient's speech is fluent and nonpressured. Mood/Affect: Patient reports their mood is "depressed, anxious" however has improved mildly, affect is congruent and constricted Suicidality/Homicidality: Patient denies having any homicidal ideation intent or plan. He is admitting to suicidal thoughts however no intent or plan. Perceptions: Patient denies any visual hallucinations and denies any auditory hallucinations Though content/process: There is no evidence of any delusional thought content and thought process is linear and goal-directed. Depressive content. Vague and guarded at times. Memory and concentration: AOX3, grossly intact for the purposes of this session. Judgment and insight: poor, improving mildly Assessment Major depressive disorder, severe, recurrent without psychotic features History of obsessive-compulsive disorder alcohol use disorder, currently in withdrawal Plan: -Patient is admitted under voluntary status to [facility] for stabilization of p sychiatric symptoms and safety. Patient has signed adult voluntary form and medication consent and is placed in patient's chart. -Medications : increase Zoloft 75 mg daily for mood/anxiety. increase BuSpar 15 mg 3 times a day for anxiety. continue with Remeron to 30 mg daily at bedtime for insomnia/appetite/mood. -prn zofran for n/v -Ativan and Haldol PRN for agitation/aggression -thiamine, MVM for etoh use -CIWA protocol with Ativan PRN for ETOH withdrawal -NRT - not needed as patient does not smoke. -SW on board for discharge planning. Encourage patient to participate in groups to work on coping skills.
[2021-03-11] MEDS: busPIRone HCl 5 MG TAB PO SCH ×2 (15:43→21:12)
[2021-03-11] MEDS: MIRTAZAPINE 15 MG TAB PO SCH (21:11)
[2021-03-12] MEDS: PANTOPRAZOLE 40 MG TABLET PO SCH (08:03)
[2021-03-12] MEDS: ASPIRIN 81 MG PO SCH (08:03)
[2021-03-12] MEDS: GABAPENTIN 100 MG CAP PO SCH ×4 (08:03→21:02)
[2021-03-12] MEDS: FOLIC ACID 1 MG TAB PO SCH (08:04)
[2021-03-12] MEDS: MULTIVITAMINS, THERA 1 EACH TAB PO SCH (08:04)
[2021-03-12] MEDS: METOPROLOL SUCCINATE (ER) 25 MG TAB.ER.24H PO SCH (08:04)
[2021-03-12] MEDS: busPIRone HCl 5 MG TAB PO SCH ×3 (08:04→21:02)
[2021-03-12] MEDS: SERTRALINE 25 MG TAB PO SCH (08:04)
[2021-03-12] MEDS: SACUBITRIL/VALSARTAN 49 MG-51 MG TABLET PO SCH ×2 (08:04→21:02)
[2021-03-12] MEDS: THIAMINE 100 MG TAB PO SCH (08:04)
--- NOTE | 2021-03-12 13:04 | P.PN ---
Progress Note - Text Progress Note Date: 03/12/21 S&O: Patient was seen for a follow-up examination. He said he feels rather sluggish and sleepy and cannot think very clearly today. He is on Remeron 30 mg at bedtime Zoloft 75 mg a day Neurontin 100 mg 4 times a day and BuSpar 15 mg 3 times a day besides other medications. He said he thought he was going to take 15 mg of Remeron. He said he had taken several medications in the past including over 200 mg of Zoloft a day for his "OCD" symptoms. Even though he had come to the hospital because of depression and suicidal thoughts, he is not feeling suicidal anymore, not obsessing anymore and thinks his depression has decreased. His medications were readjusted only 2 days ago after he came here. Patient was counseled about his condition and medications and he wants to continue all medications except for Remeron which he said is willing to try a smaller dose and see if his sleepiness and thinking ability get any better. Does not have any other issues or complaints. This is a white ambulatory male with adequate hygiene. But he is poorly combed and has untrimmed troy and mustache. He is rather slow in moving around. His speech is fairly spontaneous and goal-directed. Mood is rather dull and affect is somewhat constricted in range. He denies hallucinations, delusional thinking suicide and homicide thoughts. He is well oriented with good memory concentration and general fund of knowledge. A&P: Decrease Remeron to 15 mg at bedtime, continue other medications as ordered and therapy and supervision.
[2021-03-12] MEDS: MIRTAZAPINE 15 MG TAB PO SCH (21:02)
[2021-03-12] MEDS: LORazepam 1 MG TAB PO PRN (22:10)
[2021-03-13] MEDS: busPIRone HCl 5 MG TAB PO SCH ×3 (08:12→21:19)
[2021-03-13] MEDS: MULTIVITAMINS, THERA 1 EACH TAB PO SCH (08:12)
[2021-03-13] MEDS: PANTOPRAZOLE 40 MG TABLET PO SCH (08:12)
[2021-03-13] MEDS: ASPIRIN 81 MG PO SCH (08:12)
[2021-03-13] MEDS: GABAPENTIN 100 MG CAP PO SCH ×4 (08:12→21:19)
[2021-03-13] MEDS: THIAMINE 100 MG TAB PO SCH (08:12)
[2021-03-13] MEDS: SERTRALINE 25 MG TAB PO SCH (08:13)
[2021-03-13] MEDS: SACUBITRIL/VALSARTAN 49 MG-51 MG TABLET PO SCH ×2 (08:13→21:18)
[2021-03-13] MEDS: FOLIC ACID 1 MG TAB PO SCH (08:13)
[2021-03-13] MEDS: METOPROLOL SUCCINATE (ER) 25 MG TAB.ER.24H PO SCH (08:13)
--- NOTE | 2021-03-13 09:17 | P.PN ---
Progress Note - Text Progress Note Date: 03/13/21 S&O: Was seen for a follow-up examination. He said he slept well last night and woke up feeling better this morning. He does not feel sluggish or sleepy like he did yesterday and thinks. Using the dose of Remeron has helped him. He continues to report that his obsessive symptoms continue to be bearable. He thinks he is ready to go home today. He said he has lot of things to do at home including managing financial issues. But he does not work and does not have a good income. He was advised to wait at least one more day of feeling better before going home. He is unhappy about it and insists that he will feel worse tomorrow and lot worse on Tuesday if he has to wait that long. He said he doesn't have anything to do here, lies down in bed and has all the time to think and worry about things he should not be. He was advised to socialize with other patients and staff and attended groups. But he said he does not feel like doing any of those things. Counseling that this appears to be continuation of his depressive symptomatology he disagreed. After much counseling he agreed to give it one more day and if he still feels better tomorrow to talk to the coloring of to get the discharge plan completed. This is a right ambulatory male who is fairly cooperative. He looks rather unkempt with uncombed hair and untrimmed mustache and troy. He does not show any psychomotor agitation or retardation. His speech is spontaneous relevant and goal-directed. His mood continues to be rather anxious and affect appears to be appropriate to the thought content. He is able to joke and laugh today. He continues to deny hallucinations delusional thinking suicide and homicide thoughts. He is well oriented with good memory concentration and general fund of knowledge. A&P: Continue current medications, he is strongly advised to participate in unit activities including therapy sessions. He was also advised to discuss his discharge plan with the covering psychiatrist tomorrow.
[2021-03-13] MEDS: LORazepam 1 MG TAB PO PRN (14:10)
[2021-03-13] MEDS: MIRTAZAPINE 15 MG TAB PO SCH (21:50)
[2021-03-14] MEDS: SACUBITRIL/VALSARTAN 49 MG-51 MG TABLET PO SCH ×2 (07:56→21:07)
[2021-03-14] MEDS: MULTIVITAMINS, THERA 1 EACH TAB PO SCH (07:56)
[2021-03-14] MEDS: FOLIC ACID 1 MG TAB PO SCH (07:57)
[2021-03-14] MEDS: busPIRone HCl 5 MG TAB PO SCH ×3 (07:57→21:07)
[2021-03-14] MEDS: PANTOPRAZOLE 40 MG TABLET PO SCH (07:57)
[2021-03-14] MEDS: GABAPENTIN 100 MG CAP PO SCH ×4 (07:57→21:08)
[2021-03-14] MEDS: METOPROLOL SUCCINATE (ER) 25 MG TAB.ER.24H PO SCH (07:57)
[2021-03-14] MEDS: SERTRALINE 25 MG TAB PO SCH (07:57)
[2021-03-14] MEDS: ASPIRIN 81 MG PO SCH (07:57)
[2021-03-14] MEDS: THIAMINE 100 MG TAB PO SCH (07:58)
--- NOTE | 2021-03-14 12:27 | P.PN ---
Progress Note - Text Progress Note Date: 03/14/21 Interval History: Patient was seen for follow-up examination. This is a 60-year-old single Cauc male , father of one child. He was admitted due to worsening depression with suicidal ideation. Currently he is being treated for major depressive disorder, OCD and has history of alcohol use disorder. Patient reported his depression and anxiety are getting better as well as sleep. Patient states his current medications are helping. Patient talked about his intrusive thoughts and compulsive behavior related to handwashing. Patient states that he was hoping to be discharged today. He states the doctor who saw him yesterday told him he was going to be discharged today. He states his family doctor will continue prescribing his psychiatric medications. Patient states his girlfriend is his main support. He agreed to have his girlfriend involved in his management plan. At this time the patient denies any suicidal or homical ideations, intent or plan. Patient denies any auditory, visual hallucinations and denies any paranoia or delusions. Patient denies any side effects from the medications and has been compliant with meds. Mental Status Exam: General Appearance: Patient appears to be stated age is alert, directable, and cooperative. Behavior: Patient is calmly seated without any agitated behavior. Speech: Patient's speech is fluent and nonpressured. Mood/Affect: Mood is " better" , affect is pleasant Suicidality/Homicidality: Patient denies having any suicidal or homicidal ideation intent or plan. Perceptions: Patient denies any visual hallucinations and denies any auditory hallucinations Though content/process: There is no evidence of any delusional thought content and thought process is linear and goal-directed. Memory and concentration: AOX3, grossly intact for the purposes of this session Judgment and insight: Improving Assessment Major depressive disorder recurrent without psychotic features Obsessive compulsive disorder by history Alcohol use disorder Plan: - Vitals shows blood pressure 119/63 heart rate 75 -Patient continues to meet criteria for inpatient psychiatric admission for symptom stabilization and safety. -Medications: [Continue Zoloft 75 mg daily, BuSpar 15 mg 3 times daily and mirtazapine 15 mg nightly and monitor. -Encouraged the patient to attend AA meetings and to consider substance abuse counseling however he expressed depressed lack of interest in AA meetings. He says his sobriety plan is to stay away from alcohol and to continue his medications for depression and anxiety. -When necessary Ativan and Haldol for agitation/aggression. -NRT - nicotine patch -Possible discharge tomorrow or on Tuesday -SW on board for discharge planning. Encouraged the patient to participate in milieu.
[2021-03-14] MEDS: LORazepam 1 MG TAB PO PRN (18:41)
[2021-03-14] MEDS: MIRTAZAPINE 15 MG TAB PO SCH (21:07)
[2021-03-14 21:11] VITALS: RESP 16
[2021-03-15 06:59] VITALS: TEMP 98.3
[2021-03-15] MEDS: ASPIRIN 81 MG PO SCH (08:01)
[2021-03-15] MEDS: PANTOPRAZOLE 40 MG TABLET PO SCH (08:01)
[2021-03-15] MEDS: busPIRone HCl 5 MG TAB PO SCH (08:02)
[2021-03-15] MEDS: SACUBITRIL/VALSARTAN 49 MG-51 MG TABLET PO SCH (08:02)
[2021-03-15] MEDS: GABAPENTIN 100 MG CAP PO SCH ×2 (08:02→12:11)
[2021-03-15] MEDS: SERTRALINE 25 MG TAB PO SCH (08:02)
[2021-03-15] MEDS: MULTIVITAMINS, THERA 1 EACH TAB PO SCH (08:02)
[2021-03-15] MEDS: THIAMINE 100 MG TAB PO SCH (08:02)
[2021-03-15] MEDS: FOLIC ACID 1 MG TAB PO SCH (08:02)
[2021-03-15] MEDS: METOPROLOL SUCCINATE (ER) 25 MG TAB.ER.24H PO SCH (08:03)
[2021-03-15 08:05] VITALS: BP 115/78; PULSE 76
--- NOTE | 2021-03-15 14:59 | P.PN ---
Progress Note - Text Progress Note Date: 03/15/21 Interval History: Patient was seen for follow-up examination This is a 60-year-old single Cauc[place] jessica male , father of one child. He was admitted due to worsening depression with suicidal ideation. Currently he is being treated for major depressive disorder, OCD and has history of alcohol use disorder. Patient reported his depression, anxiety and sleep are better. Patient reported tolerating responding favorably to his current medications. Patient talked about his sobriety plan which is to stay away from alcohol and to establish care at [facility]. She states that he will continue to follow-up with his family doctor for medication management . Patient states his girlfriend is his main support. Should be noted the nurse on duty spoke to the patient's girlfriend on the phone after the patient signed the consent. Patient's girlfriend said she was ready to have her boyfriend, the patient, come back home and did not express having any concerns about his safety. At this time the patient denies any suicidal or homical ideations, intent or plan. Patient denies any auditory, visual hallucinations and denies any paranoia or delusions. Patient denies any side effects from the medications and has been compliant with meds. At this time patient denies any suicidal or homical ideations, intent or plan. Patient denies any auditory, visual hallucinations and denies any paranoia or delusions. Patient denies any side effects from the medications and has been compliant with meds. Mental Status Exam: General Appearance: Patient appears to be stated age is alert, directable, and cooperative. Behavior: Patient is calmly seated without any agitated behavior. Speech: Patient's speech is fluent and nonpressured. Mood/Affect: Mood is " better" , affect is pleasant Suicidality/Homicidality: Patient denies having any suicidal or homicidal ideation intent or plan. Perceptions: Patient denies any visual hallucinations and denies any auditory hallucinations Though content/process: There is no evidence of any delusional thought content and thought process is linear and goal-directed. Memory and concentration: AOX3, grossly intact for the purposes of this session Judgment and insight: fair Assessment Major depressive disorder recurrent without psychotic features Obsessive compulsive disorder by history Alcohol use disorder Plan: It should be noted the patient will be discharged home to the care of his girlfriend. As mentioned above the nurse on duty spoke to the patient's girlfriend on the phone who reported being ready to have her boyfriend, the patient, come back home. It was reported that they don't have any guns at home. The girlfriend did not express having any concerns about the patient's safety. - The patient was discharged on the following medications. Zoloft 75 mg daily, BuSpar 15 mg 3 times daily, and mirtazapine 15 mg nightly. - The patient has a follow-up appointment with his family doctor for medication management. - It was also reported that he has an appointment to establish care at [facility] for substance use counseling
== END 2021-03-15 14:05 | disposition home or self-care (01) | DRG 885 ==
LOC: 3MHU 21:02
PROVIDERS: ADMIT Psychiatry & Neurology Psychiatry; ATTEND Psychiatry & Neurology Psychiatry
DX: F33.2 Major depressive disorder, recurrent severe without psychotic features (principal); R45.851 Suicidal ideations; F41.9 Anxiety disorder, unspecified; I25.10 Atherosclerotic heart disease of native coronary artery without angina pectoris; F42.9 Obsessive-compulsive disorder, unspecified; I50.9 Heart failure, unspecified; I11.0 Hypertensive heart disease with heart failure; F10.20 Alcohol dependence, uncomplicated; R07.89 Other chest pain; Z56.0 Unemployment, unspecified; Z59.0 Homelessness; Z79.82 Long term (current) use of aspirin; Z87.891 Personal history of nicotine dependence; Z79.899 Other long term (current) drug therapy; Z87.19 Personal history of other diseases of the digestive system; Z88.8 Allergy status to other drugs, medicaments and biological substances; Z88.0 Allergy status to penicillin
CPT/HCPCS: 83036; 84443; 93005

== ENCOUNTER 2023-03-07 02:44 | Inpatient (IN) | payer BC, OTHER ==
[2023-03-07 02:57] LABS: Glucose,Whole Blood 235 mg/dL (70-110)
[2023-03-07] MEDS ORDERED: FUROSEMIDE 10 MG/ML 4 ML VIAL IV STA (03:03)
[2023-03-07] MEDS ORDERED: NITROGLYCERIN-D5W PMX 50 MG in DEXTROSE/WATER 1 250ML.BAG IV ONE (03:03)
[2023-03-07 03:16] LABS: Basophils % (A) 0 %; Eosinophils # (A) 0.2 k/uL (0-0.7); Eosinophils % (A) 2 %; HCT 44.1 % (39.0-53.0); HGB 15.3 gm/dL (13.0-17.5); Hypochromasia Slight; Lymphocytes # (A) 4.5 k/uL (1.0-4.8); Lymphocytes % (A) 40 %; MCH 33.7 pg (25.0-35.0); MCHC 34.7 g/dL (31.0-37.0); MCV 97.3 fL (80.0-100.0); Mean Platelet Volume 13.5; Monocytes # (A) 0.5 k/uL (0-1.0); Monocytes % (A) 5 %; Neutrophils # (A) 5.8 k/uL (1.3-7.7); Neutrophils % (A) 52 %; RBC 4.54 m/uL (4.30-5.90); RDW 14.7 % (11.5-15.5); WBC 11.2 k/uL (3.8-10.6)
--- NOTE | 2023-03-07 03:16 | ED ---
General Adult HPI - General Chief complaint: Shortness of Breath Stated complaint: SOB Time Seen by Provider: 03/07/23 02:55 Source: patient, EMS, RN notes reviewed, old records reviewed Mode of arrival: EMS Limitations: altered mental status - History of Present Illness Initial comments: 62-year-old male presenting with sudden onset dyspnea. History is obtained from the paramedics. The patient had apparently been getting ready for work when he developed rapid onset dyspnea. He has a history of congestive heart failure. The history from the patient is quite limited although he denies preceding symptoms and denies chest pain. Denies fever. Denies cough. Patient had been placed on CPAP by paramedics for hypoxia. Upon arrival the patient is pale and diaphoretic, cyanotic with a oxygen saturation the 60s. - Related Data Home Medications Medication Instructions Recorded Confirmed Gabapentin [Neurontin] 100 mg PO QID 03/06/21 03/09/21 Previous Rx's Medication Instructions Recorded Omeprazole [PriLOSEC] 40 mg PO AC-BRKFST #14 capsule. 03/08/21 Aspirin 81 mg PO DAILY chew 03/09/21 Nitroglycerin Sl Tabs [Nitrostat] 0.4 mg SUBLINGUAL Q5M PRN tab 03/09/21 Sacubitril/Valsartan [Entresto 49 1 each PO BID tablet 03/09/21 mg-51 mg Tablet] Thiamine [Vitamin B-1] 100 mg PO DAILY #30 tablet 03/09/21 Folic Acid 1 mg PO DAILY #30 tab 03/15/21 Mirtazapine [Remeron] 15 mg PO HS #7 tab 03/15/21 Sertraline [Zoloft] 75 mg PO DAILY tab 03/15/21 busPIRone HCl [Buspar] 15 mg PO TID #21 tab 03/15/21 Allergies Allergy/AdvReac Type Severity Reaction Status Date / Time No Known Allergies Allergy Verified 03/06/21 22:13 Review of Systems ROS Statement: Those systems with pertinent positive or pertinent negative responses have been documented in the HPI. ROS Other: All systems not noted in ROS Statement are negative. Past Medical History Past Medical History: Heart Failure, Hypertension Additional Past Medical History / Comment(s): OCD, left inginual hernia History of Any Multi-Drug Resistant Organisms: None Reported Past Surgical History: Tonsillectomy Past Anesthesia/Blood Transfusion Reactions: No Reported Reaction Past Psychological History: Anxiety, Depression Smoking Status: Former smoker Past Alcohol Use History: Daily Past Drug Use History: None Reported - Past Family History Father Additional Family Medical History / Comment(s): Father at age 56 from suicide. He also had history of MS. Mother Additional Family Medical History / Comment(s): Mother is alive in her 80s with history of OCD and possibly other mental health issues according to the patient. Sister(s) Additional Family Medical History / Comment(s): Patient has one sister with no major medical problems. Patient does not have any brothers. Patient has one 13-year-old daughter with history of leukemia General Exam General appearance: lethargic, in distress Head exam: Present: atraumatic, normocephalic Eye exam: Present: normal appearance, PERRL Respiratory exam: Present: respiratory distress, rales, accessory muscle use, decreased breath sounds Cardiovascular Exam: Present: tachycardia, irregular rhythm GI/Abdominal exam: Present: soft. Absent: distended, tenderness Extremities exam: Present: pedal edema Neurological exam: Present: alert, oriented X3 (Slow to respond) Skin exam: Present: cyanosis, diaphoretic, pallor Course Vital Signs 03/07/23 03/07/23 03/07/23 02:45 02:52 02:55 Temperature 97.5 F L Pulse Rate 130 H 126 H Respiratory 40 H 34 H Rate Blood Pressure 213/136 211/132 O2 Sat by Pulse 66 L 100 Oximetry Fraction of 100 Inspired Oxygen (FIO2) 03/07/23 03/07/23 03/07/23 03:05 03:22 03:39 Temperature Pulse Rate 114 H 101 H Respiratory 32 H 30 H Rate Blood Pressure 157/98 131/73 O2 Sat by Pulse 97 97 Oximetry Fraction of 85 Inspired Oxygen (FIO2) 03/07/23 03/07/23 03/07/23 03:48 04:00 04:34 Temperature Pulse Rate 90 85 Respiratory 26 H 24 24 Rate Blood Pressure 123/65 105/66 O2 Sat by Pulse 100 100 Oximetry Fraction of Inspired Oxygen (FIO2) Medical Decision Making - Medical Decision Making Was pt. sent in by a medical professional or institution (, PA, FORMULA CLERK, urgent care, hospital, or prison...) When possible be specific @ -No Did you speak to anyone other than the patient for history (EMS, parent, family, police, friend...)? What history was obtained from this source @ -[Paramedics Did you review nursing and triage notes (agree or disagree)? Why? @ -I reviewed and agree with nursing and triage notes Were old charts reviewed (outside hosp., previous admission, EMS record, old EKG, old radiological studies, urgent care reports/EKG's, prison records)? Report findings @ -Prior echo with EF of 35% Differential Diagnosis (chest pain, altered mental status, abdominal pain women, abdominal pain men, vaginal bleeding, weakness, fever, dyspnea, syncope, headache, dizziness, GI bleed, back pain, seizure, CVA, palpatations, mental health, musculoskeletal)? @ -Differential Dyspnea: Coronary syndrome, arrhythmia, tamponade, asthma, COPD, pulmonary embolism, pneumonia, pneumothorax, pulmonary effusion, anaphylaxis, diabetic ketoacidosis, flailed chest, pulmonary contusion, diaphragmatic rupture, anemia, neuromuscular, this is not meant to be an all-inclusive list. EKG interpreted by me (3pts min.). @ Sinus tachycardia with frequent PVC rate of 101, RI interval 198, QRS duration is wide at 132 QTC 459 X-rays interpreted by me (1pt min.). @ Bilateral pulmonary vascular congestion on chest x-ray CT interpreted by me (1pt min.). @ -None done U/S interpreted by me (1pt. min.). @ -None done What testing was considered but not performed or refused? (CT, X-rays, U/S, labs)? Why? @ -None What meds were considered but not given or refused? Why? @ -None Did you discuss the management of the patient with other professionals (pr ofessionals i.e. , PA, FORMULA CLERK, lab, RT, psych nurse, social professionals, bull wheel worker, teacher, railway patrol officer, telehealth case manager)? Give summary @ EM, Was smoking cessation discussed for >3mins.? @ -No Was critical care preformed (if so, how long)? @ -Yes, 35 minutes Were there social determinants of health that impacted care today? How? (Homelessness, low income, unemployed, alcoholism, drug addiction, transportation, low edu. Level, literacy, decrease access to med. care, [facility], rehab)? @ -No Was there de-escalation of care discussed even if they declined (Discuss DNR or withdrawal of care, Hospice)? DNR status @ -No What co-morbidities impacted this encounter? (DM, HTN, Smoking, COPD, CAD, Cancer, CVA, ARF, Chemo, Hep., AIDS, mental health diagnosis, sleep apnea, morbid obesity)? @ Hypertension, congestive heart failure Was patient admitted / discharged? Hospital course, mention meds given and route, prescriptions, significant lab abnormalities, going to OR and other per tinent info. @ -62-year-old male presenting in extremis, pale, cyanotic with a pulse ox in the 60s. Initial blood pressure is 230/130. Patient immediately placed on BiPAP for respiratory support, given 1000 g of nitroglycerin IV push and started on nitroglycerin infusion. Patient has rapid improvement in Estrace status. He is given Lasix in the emergency department. He has normal CBC, potassium is low and is replaced with IV potassium. He has an elevated BNP, negative troponin. Patient's mental status improves, respiratory rate improves, blood pressure normalizes. He'll be admitted to internal medicine with cardiology on consult for acute CHF and flash pulmonary edema. Undiagnosed new problem with uncertain prognosis? @ -No Drug Therapy requiring intensive monitoring for toxicity (Heparin, Nitro, Insulin, Cardizem)? @ -No Were any procedures done? @ -No Diagnosis/symptom? @ -CHF, pulmonary edema Acute, or Chronic, or Acute on Chronic? @ -Acute Uncomplicated (without systemic symptoms) or Complicated (systemic symptoms)? @ -[Complicated Side effects of treatment? @ -No Exacerbation, Progression, or Severe Exacerbation? @ -No Poses a threat to life or bodily function? How? (Chest pain, [place], [place], pneumonia, PE, COPD, DKA, ARF, appy, cholecystitis, CVA, Diverticulitis, Homicidal, Suicidal, threat to staff... and all critical care pts) @ -[Yes, hypertensive emergency, flash pulmonary edema, hypoxia, respiratory failure - Lab Data Result diagrams: 03/07/23 02:55 03/07/23 03:36 Lab Results 03/07/23 03/07/23 03/07/23 Range/Units 02:55 02:55 02:55 WBC 11.2 H (3.8-10.6) k/uL RBC 4.54 (4.30-5.90) m/uL Hgb 15.3 (13.0-17.5) gm/dL Hct 44.1 (39.0-53.0) % MCV 97.3 (80.0-100.0) fL MCH 33.7 (25.0-35.0) pg MCHC 34.7 (31.0-37.0) g/dL RDW 14.7 (11.5-15.5) % Plt Count (150-450) k/uL MPV 13.5 Neutrophils % 52 % Lymphocytes % 40 % Monocytes % 5 % Eosinophils % 2 % Basophils % 0 % Neutrophils # 5.8 (1.3-7.7) k/uL Lymphocytes # 4.5 (1.0-4.8) k/uL Monocytes # 0.5 (0-1.0) k/uL Eosinophils # 0.2 (0-0.7) k/uL Basophils # 0.0 (0-0.2) k/uL Hypochromasia Slight Anisocytosis (manual) Present Ovalocytes Present PT (9.0-12.0) sec INR (<1.2) APTT (22.0-30.0) sec Sodium (137-145) mmol/L Potassium (3.5-5.1) mmol/L Chloride (98-107) mmol/L Carbon Dioxide (22-30) mmol/L Anion Gap mmol/L BUN (9-20) mg/dL Creatinine (0.66-1.25) mg/dL Est GFR (CKD-EPI)AfAm (>60 ml/min/1.73 sqM) Est GFR (CKD-EPI)NonAf (>60 ml/min/1.73 sqM) Glucose (74-99) mg/dL POC Glucose (mg/dL) (70-110) mg/dL POC Glu Talent Recruiter ID Calcium (8.4-10.2) mg/dL Magnesium (1.6-2.3) mg/dL Total Bilirubin (0.2-1.3) mg/dL AST (17-59) U/L ALT (4-49) U/L Alkaline Phosphatase (38-126) U/L Troponin I 0.016 (0.000-0.034) ng/mL NT-Pro-B Natriuret Pep 4020 pg/mL Total Protein (6.3-8.2) g/dL Albumin (3.5-5.0) g/dL 03/07/23 03/07/23 03/07/23 Range/Units 02:56 03:36 03:47 WBC (3.8-10.6) k/uL RBC (4.30-5.90) m/uL Hgb (13.0-17.5) gm/dL Hct (39.0-53.0) % MCV (80.0-100.0) fL MCH (25.0-35.0) pg MCHC (31.0-37.0) g/dL RDW (11.5-15.5) % Plt Count (150-450) k/uL MPV Neutrophils % % Lymphocytes % % Monocytes % % Eosinophils % % Basophils % % Neutrophils # (1.3-7.7) k/uL Lymphocytes # (1.0-4.8) k/uL Monocytes # (0-1.0) k/uL Eosinophils # (0-0.7) k/uL Basophils # (0-0.2) k/uL Hypochromasia Anisocytosis (manual) Ovalocytes PT 11.9 (9.0-12.0) sec INR 1.1 (<1.2) APTT 19.5 L (22.0-30.0) sec Sodium 142 (137-145) mmol/L Potassium 2.8 L (3.5-5.1) mmol/L Chloride 106 (98-107) mmol/L Carbon Dioxide 22 (22-30) mmol/L Anion Gap 14 mmol/L BUN 14 (9-20) mg/dL Creatinine 1.19 (0.66-1.25) mg/dL Est GFR (CKD-EPI)AfAm 75 (>60 ml/min/1.73 sqM) Est GFR (CKD-EPI)NonAf 65 (>60 ml/min/1.73 sqM) Glucose 280 H (74-99) mg/dL POC Glucose (mg/dL) 235 H (70-110) mg/dL POC Glu Talent Recruiter ID Bib Riderle Calcium 8.5 (8.4-10.2) mg/dL Magnesium 1.9 (1.6-2.3) mg/dL Total Bilirubin 0.7 (0.2-1.3) mg/dL AST 25 (17-59) U/L ALT 18 (4-49) U/L Alkaline Phosphatase 71 (38-126) U/L Troponin I (0.000-0.034) ng/mL NT-Pro-B Natriuret Pep pg/mL Total Protein 6.6 (6.3-8.2) g/dL Albumin 4.1 (3.5-5.0) g/dL Critical Care Time Critical Care Time: Yes Total Critical Care Time: 35 Disposition Clinical Impression: Congestive heart failure, Pulmonary edema Disposition: ADMITTED IP TO THIS HOSP Condition: Stable Is patient prescribed a controlled substance at d/c from ED?: No Referrals: Fabby Fermin DO [Primary Care Provider] - 1-2 days Time of Disposition: 04:43
[2023-03-07 03:51] LABS: Anisocytosis (M) Present; Ovalocytes Present
--- NOTE | 2023-03-07 03:57 | XR ---
EXAM: XR Chest, 1 View CLINICAL HISTORY: ITS.REASON XR Reason: joi TECHNIQUE: Frontal view of the chest. COMPARISON: No relevant prior studies available. IMPRESSION: Cardiomegaly. Mild vascular congestion. Trace right pleural effusion
[2023-03-07 04:05] LABS: ALT 18 U/L (4-49); AST 25 U/L (17-59); African American GFR (CKD) 75 (>60 ml/min/1.73 sqM); Albumin 4.1 g/dL (3.5-5.0); Alkaline Phosphatase 71 U/L (38-126); Anion Gap 14 mmol/L; Blood Urea Nitrogen 14 mg/dL (9-20); Calcium 8.5 mg/dL (8.4-10.2); Carbon Dioxide 22 mmol/L (22-30); Chloride 106 mmol/L (98-107); Glucose 280 mg/dL (74-99); Magnesium 1.9 mg/dL (1.6-2.3); Non-African American GFR(CKD) 65 (>60 ml/min/1.73 sqM); Potassium 2.8 mmol/L (3.5-5.1); Sodium 142 mmol/L (137-145); Total Bilirubin 0.7 mg/dL (0.2-1.3); Total Protein 6.6 g/dL (6.3-8.2)
[2023-03-07] MEDS: POTASSIUM CHLORIDE 10 MEQ in WATER FOR INJECTION 1 100ML.BAG IVPB SCH ×6 (04:22→08:25)
[2023-03-07 04:23] LABS: INR 1.1 (<1.2); Prothrombin Time 11.9 sec (9.0-12.0)
[2023-03-07 04:35] LABS: Partial Thromboplastin Time 19.5 sec (22.0-30.0)
[2023-03-07] MEDS ORDERED: NALOXONE 0.4 MG/ML 1 ML VIAL IV PRN (04:39)
[2023-03-07] MEDS ORDERED: ACETAMINOPHEN TAB 325 MG TAB PO PRN (04:39)
[2023-03-07] MEDS: FUROSEMIDE 10 MG/ML 4 ML VIAL IV SCH ×2 (09:26→21:41)
--- NOTE | 2023-03-07 12:24 | P.HPIM ---
History of Present Illness 62-year-old the male came in with complaints of shortness of breath, orthopnea, paroxysmal nocturnal dyspnea, has history of congestive heart failure with previous EF of around 30 to percent to denied any chest pain. Patient is found to have pulmonary edema on the chest x-ray along with elevated BNP of 4000 patient was started on IV Lasix. Patient is presently on BiPAP. Patient had history of alcohol abuse in the past. REVIEW OF SYSTEMS: CONSTITUTIONAL: No fever, no malaise, no fatigue. HEENT: No recent visual problems or hearing problems. Denied any sore throat. CARDIOVASCULAR: no palpitations, no syncope. PULMONARY: no cough, no hemoptysis. GASTROINTESTINAL: No diarrhea, no nausea, no vomiting, no abdominal pain. NEUROLOGICAL: No headaches, no weakness, no numbness. HEMATOLOGICAL: Denies any bleeding or petechiae. GENITOURINARY: Denies any burning micturition, frequency, or urgency. MUSCULOSKELETAL/RHEUMATOLOGICAL: Denies any joint pain, swelling, or any muscle pain. ENDOCRINE: Denies any polyuria or polydipsia. The rest of the 14-point review of systems is negative. PHYSICAL EXAMINATION: GENERAL: The patient is alert and oriented x3, not in any acute distress. Well developed, well nourished. HEENT: Pupils are round and equally reacting to light. EOMI. No scleral icterus. No conjunctival pallor. Normocephalic, atraumatic. No pharyngeal erythema. No thyromegaly. CARDIOVASCULAR: S1 and S2 present. No murmurs, rubs, or gallops. PULMONARY: Chest is clear to auscultation, no wheezing or crackles. ABDOMEN: Soft, nontender, nondistended, normoactive bowel sounds. No palpable organomegaly. MUSCULOSKELETAL: No joint swelling or deformity. EXTREMITIES: No cyanosis, clubbing, or pedal edema. NEUROLOGICAL: Gross neurological examination did not reveal any focal deficits. SKIN: No rashes. Assessment and plan -Acute hypoxic respiratory failure: Secondary to CHF exacerbation, patient was started on IV Lasix, input and output monitoring, cardiology consultation. -Acute on chronic systolic heart failure -Hypertension -Depression -Elevated d-dimer but patient's pretest probability is low for pulmonary embolism, patient has CHF if he is an is pretty status improves with Lasix pat ient will not require any computed tomography scan to rule out pulmonary embolism Leukocytosis reactive DVT prophylaxis: Subcutaneous Lovenox Past Medical History Past Medical History: Heart Failure, Hypertension Additional Past Medical History / Comment(s): OCD, left inginual hernia History of Any Multi-Drug Resistant Organisms: None Reported Past Surgical History: Tonsillectomy Past Anesthesia/Blood Transfusion Reactions: No Reported Reaction Past Psychological History: Anxiety, Depression Smoking Status: Former smoker Past Alcohol Use History: Daily Past Drug Use History: None Reported - Past Family History Father Additional Family Medical History / Comment(s): Father at age 56 from suicide. He also had history of MS. Mother Additional Family Medical History / Comment(s): Mother is alive in her 80s with history of OCD and possibly other mental health issues according to the patient. Sister(s) Additional Family Medical History / Comment(s): Patient has one sister with no major medical problems. Patient does not have any brothers. Patient has one 13-year-old daughter with history of leukemia Medications and Allergies Home Medications Medication Instructions Recorded Confirmed Type Gabapentin [Neurontin] 100 mg PO TID 03/06/21 03/07/23 History Brexpiprazole [Rexulti] 1 mg PO HS 03/07/23 03/07/23 History Mirtazapine [Remeron] 15 mg PO HS 03/07/23 03/07/23 History Multivitamins, Thera [Multivitamin 1 tab PO DAILY 03/07/23 03/07/23 History (formulary)] Sacubitril/Valsartan [Entresto 97 1 tab PO BID 03/07/23 03/07/23 History mg-103 mg Tablet] Sertraline [Zoloft] 200 mg PO HS 03/07/23 03/07/23 History Allergies Allergy/AdvReac Type Severity Reaction Status Date / Time No Known Allergies Allergy Verified 03/07/23 06:46 Physical Exam Vitals: Vital Signs Temp Pulse Resp BP Pulse Ox FiO2 03/07/23 09:31 74 17 111/75 98 03/07/23 09:08 97.4 F L 72 18 105/70 100 03/07/23 08:00 69 16 91/51 96 03/07/23 07:51 71 18 91/51 96 03/07/23 07:46 40 03/07/23 07:00 80 17 96/68 100 03/07/23 06:00 75 16 96/68 99 03/07/23 05:39 60 03/07/23 05:00 72 20 103/70 100 03/07/23 04:34 85 24 105/66 100 03/07/23 04:00 90 24 123/65 100 03/07/23 03:48 26 H 03/07/23 03:39 101 H 30 H 131/73 97 03/07/23 03:22 114 H 32 H 157/98 97 03/07/23 03:05 85 03/07/23 02:55 97.5 F L 03/07/23 02:52 126 H 34 H 211/132 100 03/07/23 02:45 130 H 40 H 213/136 66 L 100 Intake and Output 03/06/23 03/07/23 03/07/23 22:59 06:59 14:59 Intake Total 16.075 Output Total 1300 Balance 16.075 -1300 Intake: Intake, IV Titration 16.075 Amount Nitroglycerin-D5w Pmx 50 16.075 mg In Dextrose/Water 1 250ml.bag @ 40 MCG/MIN 12 mls/hr IV .[id number] ONE Rx#:[id number] Output: Urine 1300 Other: Weight 108.862 kg Results CBC & Chem 7: 03/07/23 02:55 03/07/23 10:39 Labs: Abnormal Lab Results - Last 24 Hours (Table) 03/07/23 03/07/23 03/07/23 Range/Units 02:55 02:56 03:36 WBC 11.2 H (3.8-10.6) k/uL APTT (22.0-30.0) sec D-Dimer (<0.60) mg/L FEU Potassium 2.8 L (3.5-5.1) mmol/L Glucose 280 H (74-99) mg/dL POC Glucose (mg/dL) 235 H (70-110) mg/dL Troponin I (0.000-0.034) ng/mL 03/07/23 03/07/23 03/07/23 Range/Units 03:47 10:39 10:39 WBC (3.8-10.6) k/uL APTT 19.5 L (22.0-30.0) sec D-Dimer 1.82 H (<0.60) mg/L FEU Potassium (3.5-5.1) mmol/L Glucose (74-99) mg/dL POC Glucose (mg/dL) (70-110) mg/dL Troponin I 0.072 H* (0.000-0.034) ng/mL 03/07/23 Range/Units 10:39 WBC (3.8-10.6) k/uL APTT (22.0-30.0) sec D-Dimer (<0.60) mg/L FEU Potassium 3.4 L (3.5-5.1) mmol/L Glucose (74-99) mg/dL POC Glucose (mg/dL) (70-110) mg/dL Troponin I (0.000-0.034) ng/mL
[2023-03-07] MEDS: SACUBITRIL/VALSARTAN 24 MG-26 MG TABLET PO SCH ×2 (13:03→21:41)
[2023-03-07] MEDS: carvediloL 3.125 MG TAB PO SCH ×2 (13:03→16:12)
[2023-03-07] MEDS: ENOXAPARIN 100 MG/ML SYRINGE SQ SCH ×2 (13:03→21:41)
--- NOTE | 2023-03-07 13:29 | CONS ---
CONSULTATION HISTORY OF PRESENT ILLNESS: This is a 62-year-old gentleman with a known history of cardiomyopathy and also previous history of alcoholism. This gentleman is under the care of his primary care physician in [facility], Dr. Arreaga. Apparently, in 2020, he was seen by Cardiology and at that time had an echocardiogram performed. He came into the hospital after consuming excessive alcohol and had an acute alcohol intoxication and also cardiomyopathy of unclear etiology, but alcohol may have had a component to it. The patient was on Entresto, stopped his medications, and this was restarted. All this occurred in February 2021. At that time, an echocardiogram revealed an ejection fraction of about 35% to 40% with some wall motion abnormalities. He has since then not followed with Cardiology. He comes in this time with progressively worsening shortness of breath over the last few days. He also complains of some weight gain. Initially, shortness of breath was gradual, but then he volunteered to say that it was rather sudden in onset. However, he feels better. He is resting comfortably. He does have history of obstructive sleep apnea, wears a CPAP on a regular basis. He insists that he has not taken any alcohol since August of this year and has been taking his medications on a regular basis. He does have a history of underlying depression. PAST MEDICAL HISTORY: Remarkable for cardiomyopathy of unclear etiology, alcoholism. He has had a previous inguinal hernia surgery and tonsillectomy. He has underlying anxiety and depression. ALLERGIES: None. MEDICATIONS: Include; 1. Remeron. 2. Zoloft. 3. BuSpar. 4. Thiamine. 5. Entresto 49/51 one tablet b.i.d. 6. Aspirin 81 mg daily. 7. Omeprazole. PHYSICAL EXAMINATION: VITAL SIGNS: Blood pressure is 112/70, pulse rate is 74 per minute, irregular. NECK: There is JVD of 1 cm. No carotid bruit. CARDIOVASCULAR: S1, S2 heard normally. No significant murmurs. LUNGS: Revealed a decent air entry. ABDOMEN: Soft, nontender. EXTREMITIES: Lower extremities revealed diminished pulses, trace edema bilaterally. CENTRAL NERVOUS SYSTEM: Normal. LABORATORY DATA: Initially revealed that his potassium was 2.8. He has received some supplements. Repeat one is 3.4. His BNP was over 4000. EKG revealed sinus mechanism, mild IVCD, frequent isolated PVCs, nonspecific ST-T changes. IMPRESSION: 1. Hypokalemia. 2. Exacerbation of congestive heart failure. 3. History of cardiomyopathy. 4. Previous history of alcoholism. RECOMMENDATIONS: I am recommending that we will resume Entresto at lower dose, add carvedilol and continue with IV Lasix that has been started for 24 hours. We will switch him to oral Lasix. After that, I will obtain an echocardiogram and also a D-dimer is advised and we will continue serial troponins. The initial one is normal. I discussed my thoughts in detail with the patient. Thank you very much for the consult. MMODL / IJN: [id number] /
--- NOTE | 2023-03-07 15:58 | CT ---
EXAMINATION TYPE: CT angio chest CT DLP: 473.9 mGycm, Automated exposure control for dose reduction was used. DATE OF EXAM: 03/07/2023 3:48 PM COMPARISON: Chest radiograph from same day. CLINICAL INDICATION:Male, 62 years old with history of r/o PE; SOB, r/o PE TECHNIQUE/CONTRAST: CTA scan of the thorax is performed with IV Contrast, patient injected with 80 mL of Isovue 370, MIP images are created and reviewed these are created on a separate workstation.. FINDINGS: Pulmonary Artery: There is no evidence for a filling defect within the pulmonary vasculature to sugge st acute pulmonary embolism. The pulmonary artery is of normal size. Lungs/Pleura: Trace bilateral pleural effusions with associated atelectasis. No evidence focal consol idation, or pneumothorax. Airway: Large airways are patent. Heart: Is mildly enlarged for size. Vasculature: No evidence of aortic aneurysm. Mediastinum: No gross evidence of adenopathy. Musculoskeletal: No acute osseous abnormalities Soft Tissues: Unremarkable. Lower neck: No significant findings. Upper Abdomen: Nonobstructing left 4 mm calculus. IMPRESSION: 1. No evidence of pulmonary embolism. 2. Cardiomegaly with trace bilateral pleural effusions and pulmonary vascular congestion correlate wi th serum BNP.
[2023-03-07] MEDS: GABAPENTIN 100 MG CAP PO SCH ×2 (16:11→21:41)
[2023-03-07] MEDS: NON FORMULARY DRUG (Brexpiprazole [Rexulti] 1 MG Tablet) PO SCH (21:34)
[2023-03-07] MEDS: MIRTAZAPINE 15 MG TAB PO SCH (21:41)
[2023-03-07] MEDS: SERTRALINE 100 MG TAB PO SCH (21:41)
[2023-03-08] MEDS: carvediloL 3.125 MG TAB PO SCH (06:20)
--- NOTE | 2023-03-08 07:31 | CA ---
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 67 - 155 / 56 - 104 cm??? LV Systolic Volume MOD BP 132.8 cm??? 22 - 58 / 19 - 49 cm??? LV Ejection Fraction MOD BP 42.3 % >= 55 % LV Cardiac Index MOD BP 2939.8 cm???/min???m??? LV Diastolic Volume MOD 4C 250.5 cm??? LV Systolic Volume MOD 4C 162.4 cm??? LV Ejection Fraction MOD 4C 35.2 % LV Cardiac Index MOD 4C 2660.9 cm???/min???m??? LV Diastolic Length 4C 9.8 cm LV Systolic Length 4C 9.1 cm LV Diastolic Volume MOD 2C 197.4 cm??? LV Systolic Volume MOD 2C 106.9 cm??? LV Ejection Fraction MOD 2C 45.9 % LV Cardiac Index MOD 2C 2736.0 cm???/min???m??? LV Diastolic Length 2C 10.6 cm LV Systolic Length 2C 9.3 cm Ascending Aorta Diameter 3.6 cm M-MODE Aortic Root Diameter MM 3.4 cm LA Systolic Diameter MM 3.3 cm LA Ao Ratio MM 1.0 AV Cusp Separation MM 2.5 cm DOPPLER AV Peak Velocity 150.5 cm/s AV Peak Gradient 9.1 mmHg AV Mean Velocity 121.0 cm/s AV Mean Gradient 6.1 mmHg AV Velocity Time Integral 30.6 cm LVOT Peak Velocity 118.1 cm/s LVOT Peak Gradient 5.6 mmHg LVOT Velocity Time Integral 21.2 cm LVOT Stroke Volume 68.4 cm??? LVOT Stroke Volume Index 29.7 ml/m??? LVOT Cardiac Index 2068.1 cm???/min???m??? AV Area Cont Eq vti 2.2 cm??? AV Area Cont Eq pk 2.5 cm??? Mitral E Point Velocity 70.1 cm/s Mitral A Point Velocity 64.5 cm/s Mitral E to A Ratio 1.1 MV Deceleration Time 153.4 ms LV E' Lateral Velocity 6.4 cm/s Mitral E to LV E' Lateral Ratio 10.9 LV E' Septal Velocity 3.6 cm/s Mitral E to LV E' Septal Ratio 19.6 Right Atrial Pressure 15.0 mmHg FINDINGS Left Ventricle Mildly increased left ventricular diastolic diameter. Severely increased left ventricular diastolic volume. Severely increased left ventricular systolic volume. Severely decreased left ventricular ejection fraction. Left ventricular ejection fraction is estimated at 20-25%. Right Ventricle Right ventricle not well visualized. Right Atrium Right atrium not well visualized. Left Atrium Normal left atrial size. Mitral Valve Structurally normal mitral valve. moderate mitral regurgitation. Aortic Valve Aortic valve not well visualized. No aortic regurgitation. Tricuspid Valve Structurally normal tricuspid valve. Mild tricuspid regurgitation. Pulmonic Valve Pulmonic valve not well visualized. Pericardium No pericardial effusion. Aorta Normal size aortic root and proximal ascending aorta. CONCLUSIONS 1. Dilated left ventricle with severe global hypokinesis 2. Moderate mitral with mild tricuspid regurgitation Previewed by: Dr. Josefina Diana MD (Electronically Signed) Final Date: 08 March 2023 07:30
[2023-03-08] MEDS: MULTIVITAMINS, THERA 1 EACH TAB PO SCH (07:42)
[2023-03-08] MEDS: SACUBITRIL/VALSARTAN 24 MG-26 MG TABLET PO SCH ×2 (07:42→21:45)
[2023-03-08] MEDS: ENOXAPARIN 100 MG/ML SYRINGE SQ SCH (07:42)
[2023-03-08] MEDS: GABAPENTIN 100 MG CAP PO SCH ×3 (07:42→21:45)
[2023-03-08] MEDS: FUROSEMIDE 10 MG/ML 4 ML VIAL IV SCH ×2 (07:42→21:45)
[2023-03-08] MEDS: SPIRONOLACTONE 25 MG TAB PO SCH (09:38)
[2023-03-08] MEDS ORDERED: ALPRAZolam 0.25 MG TAB PO PRN (10:12)
[2023-03-08] MEDS ORDERED: NITROGLYCERIN SL TABS 0.4 MG TAB SUBLINGUAL PRN (10:12)
[2023-03-08] MEDS ORDERED: ALPRAZolam 0.5 MG TAB PO PRN (10:12)
[2023-03-08 10:45] LABS: African American GFR (CKD) >90 (>60 ml/min/1.73 sqM); Anion Gap 9 mmol/L; Blood Urea Nitrogen 13 mg/dL (9-20); Calcium 8.9 mg/dL (8.4-10.2); Carbon Dioxide 36 mmol/L (22-30); Chloride 98 mmol/L (98-107); Glucose 127 mg/dL (74-99); Magnesium 1.7 mg/dL (1.6-2.3); Non-African American GFR(CKD) >90 (>60 ml/min/1.73 sqM); Sodium 143 mmol/L (137-145)
[2023-03-08 10:50] LABS: Basophils % (A) 0 %; Eosinophils # (A) 0.1 k/uL (0-0.7); Eosinophils % (A) 2 %; HCT 42.8 % (39.0-53.0); HGB 14.6 gm/dL (13.0-17.5); Lymphocytes # (A) 1.4 k/uL (1.0-4.8); Lymphocytes % (A) 15 %; Mean Platelet Volume 9.9; Monocytes # (A) 0.4 k/uL (0-1.0); Monocytes % (A) 4 %; Neutrophils # (A) 7.5 k/uL (1.3-7.7); Neutrophils % (A) 79 %; Platelet Count 199 k/uL (150-450); RDW 14.7 % (11.5-15.5); WBC 9.6 k/uL (3.8-10.6)
[2023-03-08 10:53] LABS: MCV 91.2 fL (80.0-100.0)
[2023-03-08] MEDS: FAMOTIDINE 20 MG TAB PO SCH ×2 (11:03→21:45)
[2023-03-08] MEDS ORDERED: Magnesium Replacement Protocol 1 EACH MISC MISCELLANE PRN (11:11)
[2023-03-08] MEDS ORDERED: MAGNESIUM SULFATE-D5W PMX 1 GM in DEXTROSE/WATER 1 100ML.BAG IVPB ONE (11:11)
--- NOTE | 2023-03-08 11:11 | P.CNPUL ---
History of Present Illness Consult date: 03/08/23 Requesting physician: Norberto Culp Reason for consult: dyspnea, abnormal CXR/CT Chief complaint: Shortness of breath History of present illness: This is a very pleasant 62-year-old male patient known history of anxiety/depression, congestive heart failure, hypertension, former smoker, daily alcohol use room early yesterday morning with a sudden onset of shortness of breath while getting ready for work. He did have an room air O2 saturation of 66% on arrival. Chest x-ray revealed cardiomegaly with mild vascular congestion and trace right pleural effusion. CT angiogram ruled out pulmonary embolism. There was evidence of cardiomegaly with trace bilateral pleural effusions and pulmonary vascular congestion. ProBNP 4020. Troponins 0.016, 0.072, 0.054. White count 9.6. Hemoglobin 14.6. Sodium 143. Potassium 3.0. Bicarb 36. BUN 13. Creatinine 0.84. Glucose 127. Echocardiogram revealed severe global hypokinesia with impaired left ventricular systolic function ejection fraction of 20-25%. He is currently up ambulating in his room. Awake and alert in no acute distress. Afebrile. Hemodynamically stable. Maintaining O2 saturation in the low 90s on 4 L nasal cannula. Denies any worsening shortness of breath. Feeling better today compared to yesterday. He's been initiated on Lasix 40 mg IV every 12 hours. Currently in a -5 L balance. Review of Systems REVIEW OF SYSTEMS: CONSTITUTIONAL: Denies any recent significant weight loss or weight gain. EYES: Denies change in vision. EARS, NOSE, MOUTH, THROAT: Denies headaches, denies sore throat. CARDIOVASCULAR: Denies chest pain, palpitations or syncopal episodes. RESPIRATORY: Positive for shortness of breath, no cough, congestion or hemoptysis. GASTROINTESTINAL: Denies change in appetite, denies abdominal pain GENITOURINARY: Denies hematuria, denies infections. MUSKULOSKELETAL: Denies pain, denies swelling. INTEGUMENTARY: Denies rash, denies eczema. NEUROLOGICAL: Denies recent memory loss, no recent seizure activity. PSYCHIATRIC: Denies anxiety, denies depression. HEMATOLOGIC/LYMPHATIC: Denies anemia, denies enlarged lymph nodes. Past Medical History Past Medical History: Heart Failure, Hypertension Additional Past Medical History / Comment(s): OCD, left inginual hernia History of Any Multi-Drug Resistant Organisms: None Reported Past Surgical History: Tonsillectomy Additional Past Surgical History / Comment(s): skin cancer removal Past Anesthesia/Blood Transfusion Reactions: No Reported Reaction Past Psychological History: Anxiety, Depression Smoking Status: Former smoker Past Alcohol Use History: Daily Past Drug Use History: None Reported - Past Family History Father Additional Family Medical History / Comment(s): Father at age 56 from suicide. He also had history of MS. Mother Additional Family Medical History / Comment(s): Mother is alive in her 80s with history of OCD and possibly other mental health issues according to the patient. Sister(s) Additional Family Medical History / Comment(s): Patient has one sister with no major medical problems. Patient does not have any brothers. Patient has one 13-year-old daughter with history of leukemia Medications and Allergies Home Medications Medication Instructions Recorded Confirmed Type Gabapentin [Neurontin] 100 mg PO TID 03/06/21 03/07/23 History Brexpiprazole [Rexulti] 1 mg PO HS 03/07/23 03/07/23 History Mirtazapine [Remeron] 15 mg PO HS 03/07/23 03/07/23 History Multivitamins, Thera [Multivitamin 1 tab PO DAILY 03/07/23 03/07/23 History (formulary)] Sacubitril/Valsartan [Entresto 97 1 tab PO BID 03/07/23 03/07/23 History mg-103 mg Tablet] Sertraline [Zoloft] 200 mg PO HS 03/07/23 03/07/23 History Allergies Allergy/AdvReac Type Severity Reaction Status Date / Time No Known Allergies Allergy Verified 03/07/23 06:46 Physical Exam Vitals: Vital Signs Temp Pulse Resp BP Pulse Ox 03/08/23 09:43 20 91 L 03/08/23 07:46 98.4 F 70 20 113/72 94 L 03/08/23 07:39 70 03/08/23 04:00 98.1 F 61 16 115/73 92 L 03/08/23 00:00 98.1 F 58 L 18 128/68 94 L 03/07/23 20:00 98.0 F 54 L 18 118/70 98 03/07/23 16:00 53 L 18 103/60 96 03/07/23 14:00 80 18 03/07/23 12:00 80 18 134/82 97 Intake and Output 03/07/23 03/08/23 03/08/23 22:59 06:59 14:59 Intake Total 138 120 Output Total 1150 2900 1650 Balance -1012 2900 -1530 Intake: IV 20 Invasive Line 1 10 Invasive Line 2 10 Oral 118 120 Output: Urine 1150 2900 1650 Other: Voiding Method External Catheter External Catheter External Catheter # Voids 0 # Bowel Movements 0 Weight 97.1 kg GENERAL EXAM: Alert, active, 62-year-old male, on 4 liters nasal cannula, fairly comfortable in no apparent distress. HEAD: Normocephalic. EYES: Normal reaction of pupils, equal size. NOSE: Clear with pink turbinates. THROAT: No erythema or exudates. NECK: No masses, no JVD. CHEST: No chest wall deformity. LUNGS: Equal air entry with crackles in the bilateral bases. CVS: S1 and S2 normal with no audible murmur, regular rhythm. ABDOMEN: No hepatosplenomegaly, normal bowel sounds, no guarding or rigidity. SPINE: No scoliosis or deformity SKIN: No rashes CENTRAL NERVOUS SYSTEM: No focal deficits, tone is normal in all 4 extremities. EXTREMITIES: There is 1+ peripheral edema. No clubbing, no cyanosis. Peripheral pulses are intact. Results - Laboratory Findings CBC and BMP: 03/08/23 10:00 03/08/23 10:00 PT/INR, D-dimer PT 11.9 sec (9.0-12.0) 03/07/23 03:47 INR 1.1 (<1.2) 03/07/23 03:47 D-Dimer 1.82 mg/L FEU (<0.60) H 03/07/23 10:39 Abnormal lab findings: Abnormal Labs 03/07/23 03/07/23 03/07/23 02:55 02:56 03:36 WBC 11.2 H APTT D-Dimer Potassium 2.8 L Carbon Dioxide Glucose 280 H POC Glucose (mg/dL) 235 H Troponin I 03/07/23 03/07/23 03/07/23 03:47 10:39 10:39 WBC APTT 19.5 L D-Dimer 1.82 H Potassium Carbon Dioxide Glucose POC Glucose (mg/dL) Troponin I 0.072 H* 03/07/23 03/07/23 03/08/23 10:39 13:45 10:00 WBC APTT D-Dimer Potassium 3.4 L 3.0 L Carbon Dioxide 36 H Glucose 127 H POC Glucose (mg/dL) Troponin I 0.054 H* - Diagnostic Findings Chest x-ray: image reviewed CT scan - chest: image reviewed Assessment and Plan Assessment: Acute hypoxemic respiratory failure secondary to an acute exacerbation of systol ic congestive heart failure in a patient with severe global hypokinesia and ejection fraction of 20-25% History of congestive heart failure Hypertension Anxiety/depression Former smoker History of daily alcohol use. Plan: The patient was seen and evaluated CAT scan, echocardiogram, chest x-ray, labs and medications reviewed Continue BiPAP support as needed Titrate down the FiO2 as tolerated Continue IV diuretics Continue Entresto, beta blockers and statins Cardiology is following and planning possible cardiac catheterization in a.m. We will continue to follow and make further recommendations based on his clinical status I have personally seen and examined the patient, performed the documentation and the assessment and plan as written. Number of minutes spent on the visit: 20.
[2023-03-08] MEDS: POTASSIUM CHLORIDE ER 20 MEQ TAB.ER PO SCH ×2 (11:29→13:32)
--- NOTE | 2023-03-08 12:05 | P.PN ---
Subjective HISTORY OF PRESENT ILLNESS: This is 62-year-old male with history of cardiomyopathy and alcohol abuse who presented to the hospital with chief complaint of shortness of breath. The patient was found to be in acute congestive heart failure. He is receiving IV diuretics. The patient was initially requiring BiPAP support. However this morning he is on 4 L nasal cannula with oxygen saturations greater than 92%. Echocardiogram completed this admission reveals ejection fraction 20-25% with moderate mitral regurgitation and mild tricuspid regurgitation. Patient's previous echocardiogram in 2020 revealed ejection fraction 35-40%. Patient's states he has not drank any alcohol since last year. Patient underwent CT yes terday which was negative for pulmonary embolism. PHYSICAL EXAM: VITAL SIGNS: Reviewed. GENERAL: Well-developed in no acute distress. NECK: Supple. No JVD or thyromegaly LUNGS: Respirations even and unlabored. Lungs diminished bilaterally HEART: Regular rate and rhythm. S1 and S2 heard. EXTREMITIES: Normal range of motion. No clubbing or cyanosis. Peripheral pulses intact. No lower extremity edema ASSESSMENT: Shortness of breath Acute hypoxic respiratory failure, requiring BiPAP Acute heart failure with reduced ejection fraction History of cardiomyopathy, worsening, EF 20-25%, suspect nonischemic, however cannot rule out underlying CAD History of alcohol abuse PLAN: Continue current cardiac medications Increase carvedilol to 6.25 mg twice a day Continue IV Lasix 40 mg every 12 hours Daily weights, accurate I&O, and monitor kidney function Nothing by mouth at midnight Patient will undergo cardiac catheterization tomorrow with Dr. Celestin secondary to worsening cardiomyopathy to rule out underlying coronary artery disease Further recommendations pending patient's course Nurse practitioner note has been reviewed by physician. Signing provider agrees with the documented findings, assessment, and plan of care. Objective - Vital Signs Vital signs: Vital Signs Temp 98.4 F 03/08/23 07:46 Pulse 75 03/08/23 11:00 Resp 20 03/08/23 11:00 BP 114/72 03/08/23 11:00 Pulse Ox 92 L 03/08/23 11:00 FiO2 40 03/07/23 07:46 Intake & Output 03/07/23 03/08/23 03/08/23 18:59 06:59 18:59 Intake Total 340 20 120 Output Total 2150 3200 1650 Balance -1810 -3180 -1530 Weight 97.1 kg Intake: IV 20 Invasive Line 1 10 Invasive Line 2 10 Oral 340 120 Output: Urine 2150 3200 1650 Other: Voiding Method External Catheter External Catheter # Voids 0 # Bowel Movements 0 - Labs CBC & Chem 7: 03/08/23 10:00 03/08/23 10:00 Labs: Abnormal Lab Results - Last 24 Hours (Table) 03/07/23 03/07/23 03/08/23 Range/Units 10:39 13:45 10:00 Potassium 3.0 L (3.5-5.1) mmol/L Carbon Dioxide 36 H (22-30) mmol/L Glucose 127 H (74-99) mg/dL Troponin I 0.072 H* 0.054 H* (0.000-0.034) ng/mL
[2023-03-08] MEDS ORDERED: carvediloL 3.125 MG TAB PO STA (14:26)
[2023-03-08] MEDS: carvediloL 6.25 MG TAB PO SCH (17:24)
[2023-03-08] MEDS ORDERED: POTASSIUM CHLORIDE ER 20 MEQ TAB.ER PO STA (17:25)
--- NOTE | 2023-03-08 19:01 | P.PN ---
Subjective Progress Note Date: 03/08/23 62-year-old the male came in with complaints of shortness of breath, orthopnea, paroxysmal nocturnal dyspnea, has history of congestive heart failure with previous EF of around 30 to percent to denied any chest pain. Patient is found to have pulmonary edema on the chest x-ray along with elevated BNP of 4000 patient was started on IV Lasix. Patient is presently on BiPAP. Patient had history of alcohol abuse in the past. 03/08/2023 Patient is evaluated today resting in bed. Reports shortness of breath has improved. Underwent chest CTA reveals no evidence of pulmonary embolism, there is cardiomegaly with trace bilateral pleural effusion and pulmonary vascular congestion. Echocardiogram reveals an EF 20-25% with severe global hypokinesis and moderate MR and mild TR. Continues on lasix. Patient will be undergo cardiac catheterization tomorrow. Potassium 3.0 and 3.2 patient received total of 140 meq of potassium today. Has been weaned to room air with oxygen saturation of 92%. REVIEW OF SYSTEMS: CONSTITUTIONAL: No fever, no malaise, no fatigue. HEENT: No recent visual problems or hearing problems. Denied any sore throat. CARDIOVASCULAR: no palpitations, no syncope. PULMONARY: no cough, no hemoptysis. GASTROINTESTINAL: No diarrhea, no nausea, no vomiting, no abdominal pain. NEUROLOGICAL: No headaches, no weakness, no numbness. PHYSICAL EXAMINATION: GENERAL: The patient is alert and oriented x3, not in any acute distress. Well developed, well nourished. HEENT: Pupils are round and equally reacting to light. EOMI. No scleral icterus. No conjunctival pallor. Normocephalic, atraumatic. No pharyngeal erythema. No thyromegaly. CARDIOVASCULAR: S1 and S2 present. No murmurs, rubs, or gallops. PULMONARY: Chest is clear to auscultation, no wheezing or crackles. ABDOMEN: Soft, nontender, nondistended, normoactive bowel sounds. No palpable organomegaly. MUSCULOSKELETAL: No joint swelling or deformity. EXTREMITIES: No cyanosis, clubbing, or pedal edema. NEUROLOGICAL: Gross neurological examination did not reveal any focal deficits. SKIN: No rashes. Assessment and plan -Acute hypoxic respiratory failure: Secondary to CHF exacerbation, Patient remains on IV lasix -Acute on chronic systolic heart failure -Hypertension -Depression -Elevated d-dimer CTA negative for pulmonary embolism. -Leukocytosis reactive -History of alcohol abuse GI prophylaxis DVT prophylaxis: Subcutaneous Lovenox Full Code Plan Continue on IV lasix with strict intake and output monitoring Patient will be NPO after midnight for cardiac catheterization tomorrow The impression and plan of care has been dictated by Natali Traylor, Nurse Practitioner as directed. Dr. Sonny MD I have performed a history and physical examination and medical decision making of this patient, discussed the same with the dictator, and agree with the dictators assessment and plan as written, documented as a scribe. Based on total visit time, I have performed more than 50% of this visit. Objective - Vital Signs Vital signs: Vital Signs Temp 98.4 F 03/08/23 07:46 Pulse 70 03/08/23 07:46 Resp 20 03/08/23 09:43 BP 113/72 03/08/23 07:46 Pulse Ox 91 L 03/08/23 09:43 FiO2 40 03/07/23 07:46 Intake & Output 03/07/23 03/08/23 03/08/23 18:59 06:59 18:59 Intake Total 340 20 Output Total 2150 3200 1650 Balance -1810 -3180 -1650 Weight 97.1 kg Intake: IV 20 Invasive Line 1 10 Invasive Line 2 10 Oral 340 Output: Urine 2150 3200 1650 Other: Voiding Method External Catheter External Catheter - Labs CBC & Chem 7: 03/08/23 10:00 03/08/23 14:50 Labs: Abnormal Lab Results - Last 24 Hours (Table) 03/07/23 03/07/23 03/07/23 Range/Units 10:39 10:39 10:39 D-Dimer 1.82 H (<0.60) mg/L FEU Potassium 3.4 L (3.5-5.1) mmol/L Troponin I 0.072 H* (0.000-0.034) ng/mL 03/07/23 Range/Units 13:45 D-Dimer (<0.60) mg/L FEU Potassium (3.5-5.1) mmol/L Troponin I 0.054 H* (0.000-0.034) ng/mL Assessment and Plan Time with Patient: Less than 30
[2023-03-08] MEDS: SERTRALINE 100 MG TAB PO SCH (21:45)
[2023-03-08] MEDS: NON FORMULARY DRUG (Brexpiprazole [Rexulti] 1 MG Tablet) PO SCH (21:45)
[2023-03-08] MEDS: MIRTAZAPINE 15 MG TAB PO SCH (21:45)
[2023-03-08] MEDS: HEPARIN SODIUM,PORCINE/PF 5,000 UNIT/0.5 ML SYRINGE SQ SCH (21:45)
[2023-03-08] MEDS ORDERED: SODIUM CHLORIDE 0.9% 1,000 ML in EMPTY BAG 1 BAG IV SCH (23:00)
[2023-03-09] MEDS ORDERED: ASPIRIN 325 MG TAB PO ONE (05:00)
[2023-03-09] MEDS ORDERED: ATORVASTATIN 80 MG TAB PO ONE (05:00)
[2023-03-09] MEDS: MULTIVITAMINS, THERA 1 EACH TAB PO SCH (06:03)
[2023-03-09] MEDS: HEPARIN SODIUM,PORCINE/PF 5,000 UNIT/0.5 ML SYRINGE SQ SCH ×2 (06:03→21:40)
[2023-03-09] MEDS: FAMOTIDINE 20 MG TAB PO SCH ×2 (06:03→21:40)
[2023-03-09] MEDS: SACUBITRIL/VALSARTAN 24 MG-26 MG TABLET PO SCH ×2 (06:03→21:40)
[2023-03-09] MEDS: carvediloL 6.25 MG TAB PO SCH (06:03)
[2023-03-09] MEDS: GABAPENTIN 100 MG CAP PO SCH ×3 (06:03→21:40)
[2023-03-09 06:05] LABS: Glucose,Whole Blood 102 mg/dL (70-110)
[2023-03-09] MEDS ORDERED: HEPARIN SODIUM,PORCINE 10,000 UNIT in SODIUM CHLORIDE 0.9% 1,000 ML IRRIGATION PRN (07:00)
[2023-03-09] MEDS ORDERED: IV FLUID CONTINUATION 1,000 ML IV ONE (07:00)
[2023-03-09] MEDS ORDERED: HEPARIN SODIUM,PORCINE 2,500 UNIT in SODIUM CHLORIDE 0.9% 250 ML IRRIGATION PRN (07:00)
[2023-03-09] MEDS ORDERED: VERAPAMIL 2.5 MG/ML 2 ML AMP ONE (07:01)
[2023-03-09] MEDS ORDERED: MIDAZOLAM 2 MG/2 ML VIAL IVP ONE (07:29)
[2023-03-09] MEDS ORDERED: LIDOCAINE 1% INJ 10MG/ML (5 ML VIAL-PF) SQ ONE (07:30)
[2023-03-09] MEDS ORDERED: VERAPAMIL SYRINGE (5 MG/10 ML) INTRAARTER ONE (07:32)
[2023-03-09] MEDS ORDERED: HEPARIN SODIUM 1,000 UN/ML (10ML VL) ONE (07:33)
[2023-03-09] MEDS ORDERED: HEPARIN SODIUM 1,000 UN/ML (10ML VL) IV ONE (07:34)
[2023-03-09] MEDS ORDERED: IOPAMIDOL-370 100ML BTL INJ ONE (07:47)
[2023-03-09] MEDS ORDERED: FUROSEMIDE 10 MG/ML 2 ML VIAL IV ONE (08:17)
[2023-03-09] MEDS ORDERED: SODIUM CHLORIDE 0.9% 1,000 ML IV SCH (08:30)
[2023-03-09] MEDS: METOPROLOL TARTRATE 25 MG TAB PO SCH ×2 (08:56→21:40)
[2023-03-09] MEDS: SPIRONOLACTONE 25 MG TAB PO SCH (08:56)
--- NOTE | 2023-03-09 09:07 | CC ---
CARDIAC CATHETERIZATION REPORT PROCEDURES PERFORMED: Left heart catheterization and coronary angiography. PERFORMED BY: Dr. Alicia Celestin. Moderate conscious sedation time was 16 minutes. Patient was administered Versed. Oxygen saturation, hemodynamics, and EKG were monitored closely. CLINICAL INFORMATION: Mr. Homar Valadez is a 62-year-old gentleman with a history of alcoholism in the past and he stopped drinking in August 2022. He has a diagnosis of congestive heart failure, cardiomyopathy, was on Entresto, but he came into the hospital with increasing shortness of breath, was found to be in congestive heart failure. He was treated with IV Lasix and his medications were gradually introduced, beta-yogi was also started. Because of what seems to be a cardiomyopathy type picture of unclear etiology, was advised coronary angiography to rule out any obstructive CAD of significance to explain his cardiomyopathy. Rationale, risks, benefits, and options were explained and the patient was brought in for the procedure. DESCRIPTION OF PROCEDURE: Under local anesthesia and strict aseptic precautions, a 6-[place] introducer was placed in the right radial artery. Using JL3.5 and JR4 catheters I performed coronary angiography, and a pigtail catheter was used to check LV pressures but LV-gram was not performed. Patient's LV function by echo revealed ejection fraction of 25%. Following the procedure, the sheath was taken out and TR band applied as per protocol and patient was sent to the room in a stable condition. Saturation in the fingers of the right hand was 91%. CARDIAC CATHETERIZATION FINDINGS: The left ventricular end-diastolic pressure was about 15 mmHg without any gradient across aortic valve. CORONARY ANGIOGRAPHY FINDINGS: Right coronary artery: This is a large dominant vessel, has no significant disease. Distally bifurcates into PDA and PLV. PLV is larger, PDA is relatively smaller, both have minor irregularities. No significant disease. Super dominant RCA free of significant disease. Left main coronary artery: This is a long patent disease-free vessel that bifurcates into LAD and circumflex. Left anterior descending coronary artery: This is a good caliber vessel that gives off a very high first diagonal branch. This first diagonal branch is subtotally occluded, fills late and also has some collaterals from circumflex. This is a small caliber vessel that probably is about 1.25 mm diameter. However, this vessel is subtotally occluded, seen late filling and some collateralization from circumflex. The second diagonal is of a moderate caliber of about 2.2 mm and this has mild diffuse disease with a stenosis of up to 40 to 50% in the mid portion. Good flow is noted. Distal branches are well opacified. The LAD itself after 2 diagonal branches is of a smaller caliber, midportion has a 40% lesion, runs all the way to the apex giving off septal and diagonal branches. There is diffuse disease in the distal 1/4 of LAD. None of the LAD disease can explain patient's LV dysfunction, but there is mild diffuse disease with subtotal occlusion of 1st diagonal, moderate disease in the second diagonal and mild to moderate disease in the LAD itself beyond the second diagonal. Left posterior circumflex coronary artery: Nondominant vessel, gives off a left atrial circumflex branch and distally runs as a single obtuse marginal, smaller in caliber and distribution, has minor irregularities of no more than 30%-35%. The circumflex is therefore nondominant without significant disease. Left ventriculogram was not performed. FINAL IMPRESSION: This patient has slightly elevated filling pressures. No gradient across the aortic valve. Right dominant system with no significant disease in RCA. Left main is free of significant disease. Circumflex has a 35% to 40% narrowing, nondominant. LAD has a first diagonal that is small in caliber subtotally occluded, second diagonal has a 40% to 45% stenosis, mid LAD has a 40% narrowing. No critical lesions in the LAD other than the first diagonal that is subtotally occluded. LV-gram was not performed. RECOMMENDATIONS: I am recommending aggressive medical therapy and also treatment for his cardiomyopathy. The patient's cardiomyopathy is probably of nonischemic origin. Given the nature of disease in the LAD, which does not necessarily explain the LV dysfunction, which is quite global. We are seeing what seems to be a nonischemic cardiomyopathy with moderate LAD disease, specifically of the branches of the LAD, but I do not believe ischemia is a significant contribution to his LV dysfunction. I discussed this with the patient in detail. No family was available. We will pursue medical therapy and discharge the patient in 24 hours and we will consider ICD after appropriate wait for 3 months. I discussed my thoughts in detail with the patient. He has been refraining from alcohol. Advised to continue to refrain from alcohol altogether. MMODL / IJN: [id number] /
[2023-03-09 11:02] LABS: African American GFR (CKD) >90 (>60 ml/min/1.73 sqM); Anion Gap 9 mmol/L; Blood Urea Nitrogen 19 mg/dL (9-20); Carbon Dioxide 31 mmol/L (22-30); Chloride 104 mmol/L (98-107); Glucose 145 mg/dL (74-99); Non-African American GFR(CKD) 83 (>60 ml/min/1.73 sqM); Sodium 144 mmol/L (137-145)
[2023-03-09 11:18] LABS: Potassium 3.3 mmol/L (3.5-5.1)
[2023-03-09 11:26] LABS: Basophils % (A) 0 %; Eosinophils # (A) 0.1 k/uL (0-0.7); Eosinophils % (A) 2 %; HCT 42.3 % (39.0-53.0); HGB 14.1 gm/dL (13.0-17.5); Lymphocytes # (A) 1.6 k/uL (1.0-4.8); Lymphocytes % (A) 21 %; MCH 30.6 pg (25.0-35.0); MCHC 33.4 g/dL (31.0-37.0); MCV 91.6 fL (80.0-100.0); Mean Platelet Volume 10.5; Monocytes # (A) 0.4 k/uL (0-1.0); Monocytes % (A) 6 %; Neutrophils # (A) 5.3 k/uL (1.3-7.7); Neutrophils % (A) 69 %; Platelet Count 211 k/uL (150-450); RBC 4.62 m/uL (4.30-5.90); RDW 14.5 % (11.5-15.5); WBC 7.7 k/uL (3.8-10.6)
[2023-03-09 11:49] LABS: Magnesium 2.1 mg/dL (1.6-2.3)
--- NOTE | 2023-03-09 13:40 | P.PN ---
Subjective Progress Note Date: 03/09/23 Principal diagnosis: CHF. This is a very pleasant 62-year-old male patient known history of anxiety/depression, congestive heart failure, hypertension, former smoker, daily alcohol use room early yesterday morning with a sudden onset of shortness of breath while getting ready for work. He did have an room air O2 saturation of 66% on arrival. Chest x-ray revealed cardiomegaly with mild vascular congestion and trace right pleural effusion. CT angiogram ruled out pulmonary embolism. There was evidence of cardiomegaly with trace bilateral pleural effusions and pulmonary vascular congestion. ProBNP 4020. Troponins 0.016, 0.072, 0.054. White count 9.6. Hemoglobin 14.6. Sodium 143. Potassium 3.0. Bicarb 36. BUN 13. Creatinine 0.84. Glucose 127. Echocardiogram revealed severe global hypokinesia with impaired left ventricular systolic function ejection fraction of 20-25%. He is currently up ambulating in his room. Awake and alert in no acute distress. Afebrile. Hemodynamically stable. Maintaining O2 saturation in the low 90s on 4 L nasal cannula. Denies any worsening shortness of breath. Feeling better today compared to yesterday. He's been initiated on Lasix 40 mg IV every 12 hours. Currently in a -5 L balance. Progress note dated 03/09/2023. 62-year-old male admitted with a diagnosis of shortness of breath, secondary to CHF. The patient underwent cardiac catheterization today. He had some noncritical coronary disease, and did not require a stent. He is currently on room air. He is getting saline at 75 mL an hour. Laboratory data today includes a white count of 7.7, hemoglobin 14.1, hematocrit 42.3, and a platelet count of 211,000. Sodium 144, potassium 3.3, chlorides 104, CO2 31, BUN 19, creatinine 0.97. Objective - Vital Signs Vital signs: Vital Signs Temp 97.4 F L 03/09/23 04:00 Pulse 65 03/09/23 12:00 Resp 20 03/09/23 08:00 BP 91/56 03/09/23 12:00 Pulse Ox 95 03/09/23 12:00 FiO2 40 03/09/23 08:08 Intake & Output 03/08/23 03/09/23 03/09/23 18:59 06:59 18:59 Intake Total 120 1090 Output Total 2049 1949 Balance -1929 -1949 109 Weight 90.2 kg Intake: IV 150 Intake, IV Titration 150 Amount Sodium Chloride 0.9% 1, 150 000 ml @ 75 mls/hr IV . [id number] [facility] Rx#:[id number] Oral 120 790 Output: Urine 2049 1949 Other: Voiding Method External Catheter External Catheter # Voids 0 # Bowel Movements 0 - Exam No acute distress, oriented 3. HEENT examination is grossly unremarkable. Neck supple. Full range of motion. No adenopathy thyromegaly or neck vein distention. Cardiovascular examination reveals regular rhythm rate. S1-S2 normal. No S3 or S4. No discernible murmur noted. Heart rate 65 bpm. Lungs reveal clear breath sounds. Breath sounds are equal bilaterally. No adventitious lung sounds including wheezes rhonchi or crackles. Room air saturation is 95%. Abdomen soft bowel sounds are heard. No masses or tenderness. Extremities are intact. No cyanosis clubbing or edema. Skin is without rash or lesion. Neurologic examination is brief but nonfocal. - Labs CBC & Chem 7: 03/09/23 10:08 03/09/23 10:08 Labs: Abnormal Lab Results - Last 24 Hours (Table) 03/08/23 03/08/23 03/09/23 Range/Units 10:00 14:50 10:08 Potassium 3.2 L 3.3 L (3.5-5.1) mmol/L Carbon Dioxide 31 H (22-30) mmol/L Glucose 145 H (74-99) mg/dL Procalcitonin 0.20 H (0.02-0.09) ng/mL Assessment and Plan Assessment: Acute hypoxemic respiratory failure secondary to an acute exacerbation of systolic congestive heart failure in a patient with severe global hypokinesia and ejection fraction of 20-25%. S/P cardiac catheterization, with demonstration of non-critical, coronary artery disease, 03/09/2023. History of congestive heart failure. Hypertension. Anxiety/depression. Former smoker. History of daily alcohol use. Plan: Plan dated 03/09/2023. The patient underwent cardiac catheterization today. He did have evidence of coronary disease, but did not require a stent. The patient seemed to be resting comfortably. He's currently on room air. He's not short of breath. He is getting saline at 75 mL an hour. Labs, x-rays, medications are reviewed. Prognosis is guarded. He's been counseled not to drink alcohol anymore. We will continue to follow and make recommendations along the way. Time with Patient: Less than 30
[2023-03-09] MEDS ORDERED: POTASSIUM CHLORIDE ER 20 MEQ TAB.ER PO STA (18:38)
--- NOTE | 2023-03-09 19:40 | P.PN ---
Subjective Progress Note Date: 03/09/23 62-year-old the male came in with complaints of shortness of breath, orthopnea, paroxysmal nocturnal dyspnea, has history of congestive heart failure with previous EF of around 30 to percent to denied any chest pain. Patient is found to have pulmonary edema on the chest x-ray along with elevated BNP of 4000 patient was started on IV Lasix. Patient is presently on BiPAP. Patient had history of alcohol abuse in the past. 03/08/2023 Patient is evaluated today resting in bed. Reports shortness of breath has improved. Underwent chest CTA reveals no evidence of pulmonary embolism, there is cardiomegaly with trace bilateral pleural effusion and pulmonary vascular congestion. Echocardiogram reveals an EF 20-25% with severe global hypokinesis and moderate MR and mild TR. Continues on lasix. Patient will be undergo cardiac catheterization tomorrow. Potassium 3.0 and 3.2 patient received total of 140 meq of potassium today. Has been weaned to room air with oxygen saturation of 92%. 03/09/2023 Patient underwent cardiac catheterization which reveals slightly elevated filling pressures, 35-40% narrowing, nondominant. LAD first diag subtotally occluded, second diag has a 40-45% stenosis mid LAD has 40% narrowing. Cardiology is recommending medical therapy and follow up in 3 weeks patient will be evaluated for an ICD. Transitioned to oral lasix. Potassium 3.3 today and patient received oral supplementation. REVIEW OF SYSTEMS: CONSTITUTIONAL: No fever, no malaise, no fatigue. HEENT: No recent visual problems or hearing problems. Denied any sore throat. CARDIOVASCULAR: no palpitations, no syncope. PULMONARY: no cough, no hemoptysis. GASTROINTESTINAL: No diarrhea, no nausea, no vomiting, no abdominal pain. NEUROLOGICAL: No headaches, no weakness, no numbness. PHYSICAL EXAMINATION: GENERAL: The patient is alert and oriented x3, not in any acute distress. Well developed, well nourished. HEENT: Pupils are round and equally reacting to light. EOMI. No scleral icterus. No conjunctival pallor. Normocephalic, atraumatic. No pharyngeal erythema. No thyromegaly. CARDIOVASCULAR: S1 and S2 present. No murmurs, rubs, or gallops. PULMONARY: Chest is clear to auscultation, no wheezing or crackles. ABDOMEN: Soft, nontender, nondistended, normoactive bowel sounds. No palpable organomegaly. MUSCULOSKELETAL: No joint swelling or deformity. EXTREMITIES: No cyanosis, clubbing, or pedal edema. NEUROLOGICAL: Gross neurological examination did not reveal any focal deficits. SKIN: No rashes. Assessment and plan -Acute hypoxic respiratory failure: Secondary to CHF exacerbation transitioned to room air and transitioned to oral lasix. -Acute on chronic systolic heart failure -Nonischemic cardiomyopathy with moderate LAD disease. -Hypertension -Depression -Elevated d-dimer CTA negative for pulmonary embolism. -Leukocytosis reactive -History of alcohol abuse GI prophylaxis DVT prophylaxis: Subcutaneous Lovenox Full Code Plan Patient has been transitioned to oral lasix continues on same cardiac medications. Patient received oral potassium supplementation today and will repeat potassium level in the AM. Patient will be monitored overnight and possible D/C in the next 24 hours. Patient will be medically treated for the cardiomyopathy and be evaluated outpatient for ICD placement. The impression and plan of care has been dictated by Natali Traylor Nurse Practitioner as directed. Dr. Sonny MD I have performed a history and physical examination and medical decision making of this patient, discussed the same with the dictator, and agree with the dictators assessment and plan as written, documented as a scribe. Based on total visit time, I have performed more than 50% of this visit. Objective - Vital Signs Vital signs: Vital Signs Temp 97.4 F L 03/09/23 04:00 Pulse 78 03/09/23 04:00 Resp 20 03/08/23 15:11 BP 141/80 03/09/23 04:00 Pulse Ox 93 L 03/09/23 08:08 FiO2 40 03/09/23 08:08 Intake & Output 03/08/23 03/09/23 03/09/23 18:59 06:59 18:59 Intake Total 120 460 Output Total 2049 1949 Balance -1929 -1949 460 Weight 90.2 kg Intake: IV 150 Oral 120 310 Output: Urine 2049 1949 Other: Voiding Method External Catheter External Catheter # Voids 0 # Bowel Movements 0 - Labs CBC & Chem 7: 03/09/23 10:08 03/09/23 10:08 Labs: Abnormal Lab Results - Last 24 Hours (Table) 03/08/23 03/08/23 03/08/23 Range/Units 10:00 10:00 14:50 Potassium 3.0 L 3.2 L (3.5-5.1) mmol/L Carbon Dioxide 36 H (22-30) mmol/L Glucose 127 H (74-99) mg/dL Procalcitonin 0.20 H (0.02-0.09) ng/mL Assessment and Plan Time with Patient: Less than 30
[2023-03-09] MEDS ORDERED: ATORVASTATIN 40 MG TAB PO SCH (21:00)
[2023-03-09] MEDS: NON FORMULARY DRUG (Brexpiprazole [Rexulti] 1 MG Tablet) PO SCH (21:31)
[2023-03-09] MEDS: MIRTAZAPINE 15 MG TAB PO SCH (21:40)
[2023-03-09] MEDS: SERTRALINE 100 MG TAB PO SCH (21:40)
[2023-03-10 06:52] VITALS: TEMP 98.1
[2023-03-10 08:53] VITALS: RESP 17
[2023-03-10] MEDS ORDERED: FUROSEMIDE 40 MG TAB PO SCH (09:00)
[2023-03-10] MEDS: HEPARIN SODIUM,PORCINE/PF 5,000 UNIT/0.5 ML SYRINGE SQ SCH (09:15)
[2023-03-10] MEDS: SACUBITRIL/VALSARTAN 24 MG-26 MG TABLET PO SCH (09:15)
[2023-03-10] MEDS: METOPROLOL TARTRATE 25 MG TAB PO SCH (09:15)
[2023-03-10] MEDS: MULTIVITAMINS, THERA 1 EACH TAB PO SCH (09:15)
[2023-03-10] MEDS: FAMOTIDINE 20 MG TAB PO SCH (09:15)
[2023-03-10] MEDS: GABAPENTIN 100 MG CAP PO SCH (09:15)
[2023-03-10] MEDS: SPIRONOLACTONE 25 MG TAB PO SCH (09:15)
[2023-03-10 10:49] LABS: African American GFR (CKD) >90 (>60 ml/min/1.73 sqM); Anion Gap 6 mmol/L; Blood Urea Nitrogen 20 mg/dL (9-20); Calcium 9.3 mg/dL (8.4-10.2); Carbon Dioxide 27 mmol/L (22-30); Chloride 107 mmol/L (98-107); Glucose 101 mg/dL (74-99); Non-African American GFR(CKD) >90 (>60 ml/min/1.73 sqM); Potassium 4.4 mmol/L (3.5-5.1); Sodium 140 mmol/L (137-145)
--- NOTE | 2023-03-10 11:41 | P.PN ---
Subjective Progress Note Date: 03/10/23 Principal diagnosis: CHF. This is a very pleasant 62-year-old male patient known history of anxiety/depression, congestive heart failure, hypertension, former smoker, daily alcohol use room early yesterday morning with a sudden onset of shortness of breath while getting ready for work. He did have an room air O2 saturation of 66% on arrival. Chest x-ray revealed cardiomegaly with mild vascular congestion and trace right pleural effusion. CT angiogram ruled out pulmonary embolism. There was evidence of cardiomegaly with trace bilateral pleural effusions and pulmonary vascular congestion. ProBNP 4020. Troponins 0.016, 0.072, 0.054. White count 9.6. Hemoglobin 14.6. Sodium 143. Potassium 3.0. Bicarb 36. BUN 13. Creatinine 0.84. Glucose 127. Echocardiogram revealed severe global hypokinesia with impaired left ventricular systolic function ejection fraction of 20-25%. He is currently up ambulating in his room. Awake and alert in no acute distress. Afebrile. Hemodynamically stable. Maintaining O2 saturation in the low 90s on 4 L nasal cannula. Denies any worsening shortness of breath. Feeling better today compared to yesterday. He's been initiated on Lasix 40 mg IV every 12 hours. Currently in a -5 L balance. Progress note dated 03/09/2023. 62-year-old male admitted with a diagnosis of shortness of breath, secondary to CHF. The patient underwent cardiac catheterization today. He had some noncritical coronary disease, and did not require a stent. He is currently on room air. He is getting saline at 75 mL an hour. Laboratory data today includes a white count of 7.7, hemoglobin 14.1, hematocrit 42.3, and a platelet count of 211,000. Sodium 144, potassium 3.3, chlorides 104, CO2 31, BUN 19, creatinine 0.97. Progress note dated 03/10/2023. 62-year-old male seen today in room 379. The patient's on room air. He's not receiving any IV fluids. He is hoping to be discharged soon. Today's labs include a sodium 140, potassium 4.4, chlorides 107, CO2 27, BUN 20, and creatinine 0.79. Calcium is normal at 9.3. The patient denies any chest pain, difficulty breathing, cough, wheezing, phlegm production, or any complaints for that matter. Objective - Vital Signs Vital signs: Vital Signs Temp 98.1 F 03/10/23 08:00 Pulse 75 03/10/23 08:00 Resp 17 03/10/23 08:00 BP 112/77 03/10/23 08:00 Pulse Ox 94 L 03/10/23 08:00 FiO2 40 03/09/23 08:08 Intake & Output 03/09/23 03/10/23 03/10/23 18:59 06:59 18:59 Intake Total 1315 20 180 Output Total 300 Balance 1315 -280 180 Intake: IV 150 20 Invasive Line 2 10 Invasive Line 3 10 Intake, IV Titration 150 Amount Sodium Chloride 0.9% 1, 150 000 ml @ 75 mls/hr IV . [id number] [facility] Rx#:[id number] Oral 1015 180 Output: Urine 300 Other: Voiding Method Toilet Urinal - Exam No acute distress, oriented 3. HEENT examination is grossly unremarkable. Neck supple. Full range of motion. No adenopathy thyromegaly or neck vein distention. Cardiovascular examination reveals regular rhythm rate. S1-S2 normal. No S3 or S4. No discernible murmur noted. Heart rate 75 bpm. Lungs reveal clear breath sounds. Breath sounds are equal bilaterally. No adventitious lung sounds including wheezes rhonchi or crackles. Room air saturation is 94 %. Abdomen soft bowel sounds are heard. No masses or tenderness. Extremities are intact. No cyanosis clubbing or edema. Skin is without rash or lesion. Neurologic examination is brief but nonfocal. - Labs CBC & Chem 7: 03/09/23 10:08 03/10/23 09:39 Labs: Abnormal Lab Results - Last 24 Hours (Table) 03/10/23 Range/Units 09:39 Glucose 101 H (74-99) mg/dL Assessment and Plan Assessment: Acute hypoxemic respiratory failure secondary to an acute exacerbation of systolic congestive heart failure in a patient with severe global hypokinesia and ejection fraction of 20-25%. S/P cardiac catheterization, with demonstration of non-critical, coronary artery disease, 03/09/2023. History of congestive heart failure. Hypertension. Anxiety/depression. Former smoker. History of daily alcohol use. Plan: Plan dated 03/09/2023. The patient underwent cardiac catheterization today. He did have evidence of coronary disease, but did not require a stent. The patient seemed to be resting comfortably. He's currently on room air. He's not short of breath. He is getting saline at 75 mL an hour. Labs, x-rays, medications are reviewed. Prognosis is guarded. He's been counseled not to drink alcohol anymore. We will continue to follow and make recommendations along the way. Plan dated 03/10/2023. The patient's doing very well. The patient denies any shortness of breath, difficulty breathing, cough, wheezing, chest tightness, or chest pain or chest discomfort. The patient is hoping to be discharged in the next few hours. The patient has been counseled about the importance of abstaining from alcohol. Labs, x-rays, medications are reviewed. Prognosis is guarded. Time with Patient: Less than 30
[2023-03-10 12:13] VITALS: BP 116/81; PULSE 78
--- NOTE | 2023-03-10 13:18 | P.PN ---
Subjective HISTORY OF PRESENT ILLNESS: This is 62-year-old male with history of cardiomyopathy and alcohol abuse who presented to the hospital with chief complaint of shortness of breath. The patient was found to be in acute congestive heart failure. He is receiving IV diuretics. The patient was initially requiring BiPAP support. However this morning he is on 4 L nasal cannula with oxygen saturations greater than 92%. Echocardiogram completed this admission reveals ejection fraction 20-25% with moderate mitral regurgitation and mild tricuspid regurgitation. Patient's previous echocardiogram in 2020 revealed ejection fraction 35-40%. Patient's states he has not drank any alcohol since last year. Patient underwent CT yes terday which was negative for pulmonary embolism. 03/10/2023 Patient is status post cardiac catheterization yesterday with Dr. Celestin revealing a right dominant system with no significant disease in the RCA. Left main is free of significant disease. Circumflex is a 35-40% narrowing, nondominant. LAD has a first diagonal that is small in caliber subtotally occluded, secondary to is a 40% to 45% stenosis, mid LAD has a 40% narrowing. No critical lesions in the LAD other than the first diagonal that is subtotally occluded. Patient examined this morning at the bedside. He states he is feelin g well today. He denies any chest pain or pressure. He denies any shortness of breath. Vital signs are stable. He has been up ambulating in the room without difficulty. PHYSICAL EXAM: VITAL SIGNS: Reviewed. GENERAL: Well-developed in no acute distress. NECK: Supple. No JVD or thyromegaly LUNGS: Respirations even and unlabored. Lungs diminished bilaterally HEART: Regular rate and rhythm. S1 and S2 heard. EXTREMITIES: Normal range of motion. No clubbing or cyanosis. Peripheral pulses intact. No lower extremity edema ASSESSMENT: Shortness of breath Acute hypoxic respiratory failure, requiring BiPAP Acute heart failure with reduced ejection fraction Nonischemic cardiomyopathy, ejection fraction 20-25% Subtotally occluded first diagonal branch otherwise no obstructive coronary artery disease History of alcohol abuse PLAN: Continue current cardiac medications Abstinence from alcohol recommended We will consider ICD implantation in 3 months if patient's LV function does not improve He is stable for discharge home today from a cardiac standpoint Patient is to follow-up in the office with Dr. Celestin in 2 weeks. Nurse practitioner note has been reviewed by physician. Signing provider agrees with the documented findings, assessment, and plan of care. Objective - Vital Signs Vital signs: Vital Signs Temp 98.1 F 03/10/23 08:00 Pulse 78 03/10/23 11:45 Resp 17 03/10/23 11:45 BP 116/81 03/10/23 11:45 Pulse Ox 95 03/10/23 11:45 FiO2 40 03/09/23 08:08 Intake & Output 03/09/23 03/10/23 03/10/23 18:59 06:59 18:59 Intake Total 1315 20 360 Output Total 300 400 Balance 1315 -280 -40 Intake: IV 150 20 Invasive Line 2 10 Invasive Line 3 10 Intake, IV Titration 150 Amount Sodium Chloride 0.9% 1, 150 000 ml @ 75 mls/hr IV . [id number] [facility] Rx#:[id number] Oral 1015 360 Output: Urine 300 400 Other: Voiding Method Toilet Toilet Urinal Urinal - Labs CBC & Chem 7: 03/09/23 10:08 03/10/23 09:39 Labs: Abnormal Lab Results - Last 24 Hours (Table) 03/10/23 Range/Units 09:39 Glucose 101 H (74-99) mg/dL
== END 2023-03-10 12:18 | disposition home or self-care (01) | DRG 286 ==
LOC: EC 02:44 → 3SCARD 04:39
PROVIDERS: ADMIT Hospitalist; ATTEND Hospitalist
PROC: 5A09357 Assistance with Respiratory Ventilation, Less than 24 Consecutive Hours, Continuous Positive Airway Pressure (ICD-10-PCS; 2023-03-07)
PROC: B2111ZZ Fluoroscopy of Multiple Coronary Arteries using Low Osmolar Contrast (ICD-10-PCS; principal; 2023-03-09 07:30)
PROC: 4A023N7 Measurement of Cardiac Sampling and Pressure, Left Heart, Percutaneous Approach (ICD-10-PCS; principal; 2023-03-09 07:30)
DX: I11.0 Hypertensive heart disease with heart failure (principal); I50.23 Acute on chronic systolic (congestive) heart failure; J96.01 Acute respiratory failure with hypoxia; F41.9 Anxiety disorder, unspecified; F32.A Depression, unspecified; I49.3 Ventricular premature depolarization; I42.8 Other cardiomyopathies; D72.829 Elevated white blood cell count, unspecified; R79.1 Abnormal coagulation profile; I34.0 Nonrheumatic mitral (valve) insufficiency; F10.11 Alcohol abuse, in remission; G47.33 Obstructive sleep apnea (adult) (pediatric); I25.10 Atherosclerotic heart disease of native coronary artery without angina pectoris; F42.9 Obsessive-compulsive disorder, unspecified; E87.6 Hypokalemia; K40.90 Unilateral inguinal hernia, without obstruction or gangrene, not specified as recurrent; Z85.828 Personal history of other malignant neoplasm of skin; Z79.899 Other long term (current) drug therapy; Z79.82 Long term (current) use of aspirin; Z87.891 Personal history of nicotine dependence; Z71.41 Alcohol abuse counseling and surveillance of alcoholic
CPT/HCPCS: 36415; 71045; 71275; 80048; 80053; 83735; 83880; 84132; 84145; 84484; 85025; 85379; 85610; 85730; 93005; 93306; 93458; 94660; 94760; 96365; 96366; 96367; 96368; 96375; 96376; 99291